=== PATIENT | female | born 1950 | race Caucasian/White ===

== ENCOUNTER 2019-11-05 13:47 | Outpatient (CLI) | payer MEDICARE, SELFPAY ==
--- NOTE | 2019-11-05 14:01 | USCV_ITS ---
Michelle Wray Age: 69 Gender: F : 1950 Exam Date: 11/05/2019 14:18 Ordering Phys: Seven Akbar MD (Andy) ([email or web address]) Technologist: Summer Figueredo [place] [facility] [place]: POST HC Risk Factors: CATH THRU RT RAD ART Previous Vascular Surgery: Right BP: / Left BP: / RIGHT LEFT PSV PSV (cm/s) (cm/s) Waveform Waveform Triphasic 105.9 Subclavian Proximal Triphasic 88.1 Subclavian Distal Triphasic 77.8 Axillary Triphasic 43.7 Brachial Proximal Triphasic 88.2 Brachial Mid Triphasic 63.3 Brachial at AC Biphasic 54.7 Radial Proximal Biphasic 46.5 Radial Mid Biphasic 21.5 Radial at Wrist Triphasic 32.2 Ulnar Proximal Triphasic 29.4 Ulnar Mid Triphasic 104.1 Ulnar at Wrist FINDINGS UNABLE TO DO PRESSURES DO TO PSEUDO A 1.2 x 0.7 cm hypoechoic echoic area on the anterior aspect of the distal radial artery. Blood flow was noted in this area. 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 Patent radial and ulnar arteries Dr Radha Camarena MD [facility] [place] (Electronically Signed) Final Date: 05 November 2019 19:10 S
== END 2019-11-05 13:48 | disposition home or self-care (01) ==
LOC: RAD 13:57
PROVIDERS: Visit Provider Internal Medicine Cardiovascular Disease
DX: I72.1 Aneurysm of artery of upper extremity (principal)
CPT/HCPCS: 93931

== ENCOUNTER 2019-11-19 05:48 | Day surgery (SDC) | payer MEDICARE, SELFPAY ==
[2019-11-16 10:42] VITALS: BMI 34.7
--- NOTE | 2019-11-16 11:10 | ECG_ITS ---
Measurements Intervals [place] Rate: 75 P: 21 WV: 161 QRS: 2 QRSD: 95 T: 103 QT: 382 QTc: 427 SINUS RHYTHM LEFT VENTRICULAR HYPERTROPHY AND ST-T CHANGE [VOLTAGE CRITERIA PLUS ST/T ABNORMALITY] Compared to ECG 10/09/2019 18:24:16 Myocardial infarct finding no longer present ST (T wave) deviation still present Electronically Signed On 11-16-2019 15:37:33 BIBLICAL STUDIES PROFESSOR by Radha Camarena M.D. [email or web address]
--- NOTE | 2019-11-16 11:27 | ANES.PREANES ---
Pre-Anesthetic Assessment Pre-Anesthetic Assessment: Height/Weight: Height 1.57 m Weight 86.183 kg Proposed Procedure: Operation Date: 11/19/19 07:00 Proposed Procedures p Radial Artery Repair(Not Applicable) - Seven Akbar MD Social: Social History: Tobacco (quit 2004) and No alcohol Exam: Pre-Anes Outpt Exam: alert, oriented x 3, clear to auscultation bilaterally and regular rate & rhythm Airway: Submandibular: WNL Cervical ROM: WNL MP: 2 Dentition: Partials (upper) and Other (poor dentation) History/ROS: No significant history except as noted Pulmonary: Pulmonary: AZUL CV/HEM: CV/HEM: HTN : : None reported Hepatic: Hepatic: None reported GI: GI: None reported Metabolic: Metabolic: None reported Musc/skel: Musc/skel: None reported Neuropsych: Neuropsych: None reported Anesthetic Plan: ASA status: II Anesthesia: Anesthesia Evaluation and MAC Risk of > 500 ml blood loss (7ml/kg in children): No PFSH Anesthesia PFSH: Medical History (Updated 11/16/19 @ 11:28 by Blade Eastman MD) Atrial fibrillation (Acute) CHF (congestive heart failure) (Acute) History of fracture (Acute) Hypertension (Acute) Radial artery aneurysm (Acute) Surgical History (Updated 11/16/19 @ 11:28 by Blade Eastman MD) H/O: section (Acute) Family History Father CAD (coronary artery disease) Myocardial infarction Sister Cancer Social History Smoking and tobacco status: former smoker Quit status (tobacco): has quit using tobacco Alcohol intake: never Substance/Drug Use: never Data Anesthesia Cardiac Studies: Holter Monitor 10/31/19
[2019-11-16 11:30] LABS: Basophils % 0.6 %; Eosinophils # 0.1 10^3/uL (0.0-0.8); Eosinophils % 1.3 %; Hematocrit 41.9 % (37.0-47.0); Hemoglobin 13.3 g/dL (11.5-15.3); Lymphocytes # 1.5 10^3/uL (0.8-4.8); Mean Corpuscular HGB Conc 31.7 g/dL (30.0-36.0); Mean Corpuscular Hemoglobin 28.2 pg (28.0-34.0); Mean Corpuscular Volume 88.8 fL (81-99); Mean Platelet Volume 9.9 fL (7.4-10.4); Monocytes # 0.6 10^3/uL (0.2-0.9); Monocytes % 9.6 %; Neutrophils # 4.1 10^3/uL (1.8-7.7); Neutrophils % 64.2 %; Nucleated Red Blood Cells % 0 %; Platelet Count 272 10^3/cmm (130-400); Red Blood Count 4.72 10^6/uL (4.1-5.3); Red Cell Distribution Width 13.8 % (12.1-15.1); White Blood Count 6.4 10^3/uL (4.0-10.0)
[2019-11-16 11:48] LABS: INR 1.38 (0.8-1.2)
[2019-11-16 11:59] LABS: Anion Gap 18.1 (5-19); Blood Urea Nitrogen 16 mg/dL (8-23); Carbon Dioxide 30 mmol/L (22-29); Chloride 89 mmol/L (98-107); Glomerular Filtration Rate 55.1 mL/min (90-130); Glucose 116 mg/dL (74-106); Osmolality Calculated 273 mOsm/kg (285-295); Potassium 4.1 mmol/L (3.5-5.1); Sodium 133 mmol/L (136-145)
[2019-11-19 06:11] VITALS: BP 169/119; PULSE 85; RESP 18; TEMP 37.3
--- NOTE | 2019-11-19 06:24 | PM.HPUD ---
H&P update H&P Update: DATE OF SURGERY/PROCEDURE: 11/19/19 DATE H&P PERFORMED: 11/19/19 H&P UPDATE INFORMATION: H&P completed within last 30 days and No changes to prior documentation CHANGES TO PREVIOUS DOCUMENTATION: Ultrasonography has confirmed pseudoaneurysm with flow in the right radial artery at the wrist. PREOP DIAGNOSIS: Pseudoaneurysm right radial artery status post left heart catheterization PRIMARY INDICATION FOR PROCEDURE: Enlarging pseudoaneurysm right radial artery PLANNED PROCEDURE: Operation Date: 11/19/19 07:00 Proposed Procedures p Radial Artery Repair(Not Applicable) - Seven Akbar MD Conscious Sedation: Patient reassessed prior to sedation, with no change noted: Yes PHYSICAL EXAM: alert, oriented x 3, clear to auscultation bilaterally, regular rate & rhythm and operative site marked AIRWAY EVAL/ANESTHESIA PLAN: normal airway and Risks, benefits & alternatives of sedation and/or procedure discussed ADDITIONAL INFORMATION: Conscious sedation will be provided by our anesthesia colleagues. Full H&P Perinent History: Medical/Surgical History: Medical History (Updated 11/16/19 @ 11:28 by Blade Eastman MD) Atrial fibrillation (Acute) CHF (congestive heart failure) (Acute) History of fracture (Acute) Hypertension (Acute) Radial artery aneurysm (Acute) Family History: Family History Father CAD (coronary artery disease) Myocardial infarction Sister Cancer Social History: Social History Smoking and tobacco status: former smoker Quit status (tobacco): has quit using tobacco Alcohol intake: never Substance/Drug Use: never
[2019-11-19 06:25] VITALS: BP 147/76
[2019-11-19] MEDS: vancomycin 1,000 MG SDV 1000 MG IRRIGATION (07:34)
[2019-11-19] MEDS: sodium chloride 0.9% 1,000 ML 30 ML IV (07:59)
--- NOTE | 2019-11-19 08:07 | PM.HPUD ---
H&P update H&P Update: DATE OF SURGERY/PROCEDURE: 11/19/19 DATE H&P PERFORMED: 11/19/19 PLANNED PROCEDURE: Operation Date: 11/19/19 07:00 Proposed Procedures p Radial Artery Repair(Not Applicable) - Seven Akbar MD Full H&P Medications/Allergies: Current Medications: Current Medications Generic Name Dose Route Start Last Admin Trade Name Freq PRN Reason Stop Dose Admin Sodium Chloride 1,000 mls @ 30 ml s/hr 11/19/19 06:00 11/19/19 07:59 Sodium Chloride 0.9% IV 11/20/19 05:59 30 mls/hr .Q24H SY Administration Perinent History: Medical/Surgical History: Medical History (Updated 11/16/19 @ 11:28 by Blade Eastman MD) Atrial fibrillation (Acute) CHF (congestive heart failure) (Acute) History of fracture (Acute) Hypertension (Acute) Radial artery aneurysm (Acute) Family History: Family History Father CAD (coronary artery disease) Myocardial infarction Sister Cancer Social History: Social History Smoking and tobacco status: former smoker Quit status (tobacco): has quit using tobacco Alcohol intake: never Substance/Drug Use: never
--- NOTE | 2019-11-19 08:14 | P.ANES_ITS ---
Pre-Anesthetic Update Pre-Anesthetic Assessment: Date of Surgery/Procedure: 11/19/19 Preop Priscilla gnosis: Pseudoaneurysm right radial artery status post left heart catheterization Proposed Procedure: Operation Date: 11/19/19 07:00 Proposed Procedures p Radial Artery Repair(Not Applicable) - Seven Akbar MD Any changes to Pre-Anesthetic Assessment?: No Vitals: Temperature 99.1 F 11/19/19 06:11 Temperature Source Temporal Artery S can 11/19/19 06:11 Pulse Rate 85 11/19/19 06:11 Pulse Rhythm 11/19/19 06:11 Pulse Strength 3+ Normal 11/19/19 06:11 Respiratory Rate 18 11/19/19 06:11 Respiratory Effort 11/19/19 06:11 Respiratory Depth Normal 11/19/19 06:11 Respiratory Patter n 11/19/19 06:11 Blood Pressure 147/76 11/19/19 06:25 Blood Pressure Sushila n 99 11/19/19 06:25 Oxygen Delivery Me thod 11/19/19 06:09 Exam: Pre-Anes Outpt Exam: alert, oriented x 3, clear to auscultation bilaterally and regular rate & rhythm Cardiac Studies: Holter Monitor 10/31/19
[2019-11-19] MEDS: lidocaine 1% INJ 20 mL SUBCUT (09:02)
--- NOTE | 2019-11-19 09:15 | P.OP_ITS ---
Operative Report Date of procedure: 11/19/19 Pre-op Diagnosis: Pseudoaneurysm right radial artery status post left heart catheterization Post-op diagnosis: same Procedure Done: Repair of right radial artery pseudoaneurysm Specimens removed/disposition: Pseudoaneurysm specimen wall delivered to pathology Surgeon: Seven Akbar Anesthesia: MAC and Local (8 cc) Estimated blood loss (mL): 10 Complications: None Condition: stable Disposition: same day Brief History: 69-year-old female referred to our clinic earlier this month after undergoing left heart catheterization through a right radial approach back in August by Dr. Camarena. Patient developed a slowly enlarging area at the site of the catheterization of the right wrist. This clinically appears to represent a pseudoaneurysm, and indeed by ultrasonography, there was flow confirmed. I have recommended surgical correction. Rationale was discussed. Details the risk of the procedure were frankly reviewed. Appropriate signs have been reviewed and signed. Procedure: Ms. Wray was taken operating room theater carefully positioned on the OR table. Appropriate monitoring was performed by our anesthesia colleagues. She received IV conscious sedation. Her entire right hand and forearm up to the elbow was sterilely prepped and draped. 1% lidocaine was infiltrated over this pseudoaneurysm at the right wrist. Just prior to this I did confirm Doppler signal above and below the pseudoaneurysm as well as confirming a strong Doppler signal with enhancement of the ulnar artery with pre ssure occlusion of the right radial. After local anesthesia was administered, a longitudinal incision was made over the pseudoaneurysm and continue proximally and distally. Dissection was then carried out in these areas until we could expose the radial artery which was isolated. Separately continued dissection over the pseudoaneurysm and at this point we administered 5000 is of heparin. We provided occlusion to the radial artery proximally distally some continued dissection of the pseudoaneurysm and a circumferential fashion. Following this, the pseudoaneurysm was opened and a large amount of thrombus was expressed. I then resected the pseudoaneurysmal wall and this was sent to pathology. We did continue dissection down exposing the radial artery with a area of extravasation from the prior catheterization was repaired utilizing 7-0 Prolene suture. Nitroglycerin was applied topically to the vessel as occlusion was released reestablishing flow. We confirm distal flow with the use of Doppler. After approximately 5 minutes, we partially reversed heparin with 25 mg of protamine. We then meticulously examined the wound and confirmed hemostasis. Cautery and suture was utilized as required. Once completed, the wound was irrigated antibiotic solution. Sponge and needle count was correct. Surgicel was placed over the radial artery. It was then closed with 3-0 Vicryl suture in a subcutaneous manner and 4-0 Monocryl suture in a subcuticular manner. Sterile dressings were applied. We confirmed distal Doppler signal. Ms. Wray was then awakened from IV conscious sedation with stable vital signs. She was transferred to the outpatient surgery department in stable condition. I did student loan counselor her family at completion of the procedure.
[2019-11-19] MEDS: morphine 4 mg/mL SDV 1 mL IVP (10:11)
[2019-11-19 10:12] VITALS: BP 145/76; PULSE 82; RESP 18; TEMP 36.6; O2SAT 94
[2019-11-19 10:19] VITALS: BP 165/84; PULSE 72; RESP 18; O2SAT 96
== END 2019-11-19 10:47 | disposition home or self-care (01) ==
PROVIDERS: Visit Provider Thoracic Surgery (Cardiothoracic Vascular Surgery)
PROC: (CPT 35045; principal; 2019-11-19 07:00)
DX: I72.1 Aneurysm of artery of upper extremity (principal); I48.91 Unspecified atrial fibrillation; I11.0 Hypertensive heart disease with heart failure; I50.9 Heart failure, unspecified; Z82.49 Family history of ischemic heart disease and other diseases of the circulatory system; Z87.891 Personal history of nicotine dependence; I10 Essential (primary) hypertension
CPT/HCPCS: 37799; 12345; 36415; 80048; 85025; 85610; 88305; 93005; 96365; 96374; J0690; J1644; J2001; J2270; J2704; J2720; J3010; J3370; J3490; J7030

== ENCOUNTER → 2019-12-10 15:45 | Outpatient (BNVA) | payer MEDICARE, SELFPAY | PROVIDERS: Visit Provider Family Medicine | DX: I10 Essential (primary) hypertension (principal) | CPT/HCPCS: 36415; 80048 ==

== ENCOUNTER → 2020-01-04 13:44 | Outpatient (BNVA) | payer MEDICARE, SELFPAY | PROVIDERS: Visit Provider Family Medicine | DX: Z01.419 Encounter for gynecological examination (general) (routine) without abnormal findings (principal); I10 Essential (primary) hypertension; E11.9 Type 2 diabetes mellitus without complications; Z12.11 Encounter for screening for malignant neoplasm of colon | CPT/HCPCS: 80053; 80061; 82044; 85025; 88175 ==

== ENCOUNTER → 2022-01-22 11:10 | Outpatient (BNVA) | payer MEDICARE, SELFPAY | PROVIDERS: PCP Electrodiagnostic Medicine; Visit Provider Nurse Practitioner Family | DX: I35.0 Nonrheumatic aortic (valve) stenosis (principal); I11.0 Hypertensive heart disease with heart failure; I50.42 Chronic combined systolic (congestive) and diastolic (congestive) heart failure; Z87.891 Personal history of nicotine dependence | CPT/HCPCS: 99214 ==

== ENCOUNTER 2022-02-17 09:28 | Outpatient (CLI) | payer MEDICARE, SELFPAY ==
--- NOTE | 2022-02-17 10:15 | USCV_ITS ---
Nils Tiesha Age: 71 Gender: F : 1950 Exam Date: 02/17/2022 11:12 Ordering Phys: Melly Monson Technologist: Jona Pepper [place]am [place] [facility] [place]: Aortic stenosis BP: 188 / 96 HR: 56 Rhythm: Sinus Technical Quality: MEASUREMENTS (Male / Female) Normal Values 2D ECHO LV Diastolic Diameter PLAX 4.6 cm 4.2 - 5.9 / 3.9 - 5.3 cm LV Systolic Diameter PLAX 2.9 cm IVS Diastolic Thickness 0.8 cm 0.6 - 1.0 / 0.6 - 0.9 cm IVS Systolic Thickness 1.1 cm LVPW Diastolic Thickness 1.6 cm 0.6 - 1.0 / 0.6 - 0.9 cm LVPW Systolic Thickness 2.1 cm LVOT Diameter 2.0 cm LV Ejection Fraction 2D Teich 67.9 % LV Ejection Fraction MOD 2C 73.1 % LV Ejection Fraction 2C AL 73.5 % LA Diameter 3.1 cm LA Width 2.9 cm LA Height 5.1 cm RA Width 3.8 cm RA Height 3.9 cm Aorta at Sinotubular Diameter 1.8 cm M-MODE Aortic Annulus Diameter 2.6 cm LA Ao Ratio MM 1.2 MV E Point Septal Separation 0.3 cm DOPPLER AV Peak Velocity 295.0 cm/s LVOT Peak Velocity 93.0 cm/s AV Area Cont Eq vti 1.1 cm squared AV Area Cont Eq pk 1.0 cm squared MV Area PHT 3.9 cm squared Mitral E to A Ratio 1.1 MV E' Velocity 51.0 cm/s Mitral E to MV E' Ratio 9.2 Mitral E to LV E' Lateral Ratio 8.9 Mitral E to LV E' Septal Ratio 9.7 TR Peak Velocity 451.2 cm/s TR Peak Gradient 81.4 mmHg TR Mean Velocity 363.0 cm/s TR Mean Gradient 55.5 mmHg TR Velocity Time Integral 152.8 cm Right Atrial Pressure 3.0 mmHg Pulmonary Artery Systolic Pressu 84.4 mmHg RV Acceleration Time 0.2 s RV Ejection Time 0.4 s RV AcT/ET 0.6 FINDINGS Left Ventricle Normal left ventricular size, systolic function and mildly increased wall thickness, with no regional wall motion abnormalities. Left ventricular ejection fraction is estimated at 65 %. Normal diastolic function. Right Ventricle Normal right ventricular size and systolic function. RVSP could not be calculated due to incomplete tricuspid regurgitation velocity profile. Right Atrium Normal right atrial size. Right atrial pressure estimated at 8 mmHg. Left Atrium Mildly increased left atrial size. Mitral Valve Structurally normal mitral valve. No mitral valve stenosis. Trace mitral valve regurgitation. Aortic Valve Aortic valve not well visualized. Possibly mild aortic valve stenosis, peak velocity 3 m/s, peak gradient 30 mm Hg, mean gradient 19.1 mmHg, ANNMARIE 1.1 cm squared. However the contour of aortic valve jet appears to be triangular. No aortic valve regurgitation. Tricuspid Valve Structurally normal tricuspid valve. No tricuspid valve stenosis. Mild tricuspid valve regurgitation. Pulmonic Valve Pulmonic valve not well visualized. Pericardium No pericardial effusion. Aorta Dilated inferior vena cava with greater than 50% respiratory variation. CONCLUSIONS 1. Normal left ventricular size, systolic function and mildly increased wall thickness, with no regional wall motion abnormalities. Left ventricular ejection fraction is estimated at 65 %. Normal diastolic function. 2. Possibly mild aortic valve stenosis, peak velocity 3 m/s, peak gradient 30 mm Hg, mean gradient 19.1 mmHg, ANNMARIE 1.1 cm squared. 3. When compared to previous echocardiogram dated 09/14/2019, left ventricular systolic function seems to have improved. Tessy Hobson MD (Electronically Signed) Final Date: 22 Feb 2022 12:49 S
== END 2022-02-17 09:29 | disposition home or self-care (01) ==
PROVIDERS: PCP Electrodiagnostic Medicine; Visit Provider Nurse Practitioner Family
DX: I35.0 Nonrheumatic aortic (valve) stenosis (principal)
CPT/HCPCS: 93306

== ENCOUNTER 2022-04-12 10:26 | Outpatient (CLI) | payer MEDICARE, SELFPAY ==
--- NOTE | 2022-04-12 10:35 | MM_ITS ---
WS: [id number] BILATERAL SCREENING DIGITAL BREAST TOMOSYNTHESIS MAMMOGRAM WITH CAD HISTORY: SCREEN COMPARISON: None available. Bilateral CC and MLO views with tomosynthesis and synthetic mammography submitted. Computer aided det ection analyzed. Breast composition: The breasts are heterogeneously dense, which may obscure small masses. No suspici ous masses, microcalcifications or architectural distortion. MM/[place] [id number] IMPRESSION: BI-RADS: 1-Negative FOLLOW UP: 1 Year Follow-up
== END 2022-04-12 10:27 | disposition home or self-care (01) ==
LOC: RAD 10:27
PROVIDERS: PCP Electrodiagnostic Medicine; Visit Provider Electrodiagnostic Medicine
DX: Z12.31 Encounter for screening mammogram for malignant neoplasm of breast (principal)
CPT/HCPCS: 77063; 77067

== ENCOUNTER → 2022-12-21 11:01 | Outpatient (BNVA) | payer MEDICARE, SELFPAY | PROVIDERS: PCP Family Medicine; Visit Provider Family Medicine | DX: I10 Essential (primary) hypertension (principal); I35.0 Nonrheumatic aortic (valve) stenosis; I48.0 Paroxysmal atrial fibrillation; Z01.419 Encounter for gynecological examination (general) (routine) without abnormal findings; I50.42 Chronic combined systolic (congestive) and diastolic (congestive) heart failure | CPT/HCPCS: 80053; 80061 ==

== ENCOUNTER → 2023-03-14 14:28 | Outpatient (BNVA) | payer MEDICARE, SELFPAY | PROVIDERS: PCP Family Medicine; Visit Provider Internal Medicine Cardiovascular Disease | DX: I11.0 Hypertensive heart disease with heart failure (principal); I50.42 Chronic combined systolic (congestive) and diastolic (congestive) heart failure; I35.0 Nonrheumatic aortic (valve) stenosis; I48.0 Paroxysmal atrial fibrillation; Z86.79 Personal history of other diseases of the circulatory system; F17.200 Nicotine dependence, unspecified, uncomplicated; Z79.82 Long term (current) use of aspirin | CPT/HCPCS: 99214 ==

== ENCOUNTER 2023-06-26 15:56 | Emergency (ER) | payer MEDICARE, SELFPAY ==
[2023-06-26 16:00] VITALS: BP 206/121; PULSE 115; RESP 18; O2SAT 95
--- NOTE | 2023-06-26 16:10 | CTR_ITS ---
PROCEDURE INFORMATION: Exam: CT Head Without Contrast Exam date and time: 06/26/2023 4:23 PM Age: 72 years old Clinical indication: Stroke-like symptoms; Visual disturbance; Additional info: Vision loss right eye TECHNIQUE: Imaging protocol: Computed tomography of the head without contrast. Sagittal and coronal reformatted images were created and reviewed. Radiation optimization: All CT scans at this facility use at least one of these dose optimization techniques: automated exposure control; mA and/or kV adjustment per patient size (includes targeted exams where dose is matched to clinical indication); or iterative reconstruction. Other technique: STROKE PROTOCOL was implemented. REPORTING DATA: Count of CT and Cardiac NM exams in prior 12 months: This patient has received 0 known CTs and 0 known cardiac nuclear medicine studies in the 12 months prior to the current study. COMPARISON: CT head wo con* [id number] 09/14/2019 1:48 AM RADIATION DOSE METRICS: Total DLP (mGy-cm): 956.63 FINDINGS: Brain: No acute intracranial hemorrhage. No acute infarct. No intra-axial or extra-axial masses. Cheek-white matter differentiation is preserved. No cerebral edema. No extra-axial fluid collections. No midline shift. No evidence for Chiari 1 malformation. Stable mild atrophy of the brain parenchyma. Focal area of decreased attenuation consistent with an old lacunar infarct in the left basal ganglia. Cerebral ventricles: No hydrocephalus. Paranasal sinuses: Visualized paranasal sinuses are clear. Mastoid air cells: Mastoid air cells are clear bilaterally. Orbital cavities: No acute abnormality in the visualized orbits. Bones/joints: No acute fracture. Soft tissues: The extracranial soft tissues are unremarkable. Vasculature: Atherosclerotic changes in the visualized arteries. CT/CT head thrombolytic [id number] IMPRESSION: 1. No acute abnormality of the brain. 2. Stable mild atrophy of the brain parenchyma. 3. Old lacunar infarct in the left basal ganglia. 4. Incidental/nonacute findings are listed in the report. ASSESSMENT: ASPECTS ([place] Stroke Program Early CT Score) Score is 10.
--- NOTE | 2023-06-26 16:11 | CTR_ITS ---
PROCEDURE INFORMATION: Exam: CTA Head With Contrast, Arteriography Exam date and time: 06/26/2023 4:27 PM Age: 72 years old Clinical indication: Visual disturbance; Sudden visual loss; Additional info: Acute vision loss right eye TECHNIQUE: Imaging protocol: Computed tomographic angiography of the head with contrast. Exam focused on the arteries. 3D rendering (Not supervised by radiologist): MIP and/or 3D reconstructed images were created by the technologist. Radiation optimization: All CT scans at this facility use at least one of these dose optimization techniques: automated exposure control; mA and/or kV adjustment per patient size (includes targeted exams where dose is matched to clinical indication); or iterative reconstruction. Contrast material: OMNI 350; Contrast volume: 100 ml; Contrast route: INTRAVENOUS (IV); REPORTING DATA: Count of CT and Cardiac NM exams in prior 12 months: This patient has received 0 known CTs and 0 known cardiac nuclear medicine studies in the 12 months prior to the current study. COMPARISON: CT head thrombolytic [id number] 06/26/2023 4:23 PM RADIATION DOSE METRICS: Total DLP (mGy-cm): 462.45 FINDINGS: ANTERIOR CIRCULATION: Right internal carotid artery: Mild calcified plaque at the cavernous and supraclinoid segments. No occlusion, thrombosis, stenosis, extravasation, dissection, or aneurysm. Right middle cerebral artery: Unremarkable. No occlusion, thrombosis, stenosis, extravasation, dissection, or aneurysm. Right anterior cerebral artery: Unremarkable. No occlusion, thrombosis, stenosis, extravasation, dissection, or aneurysm. Anterior communicating artery: The anterior communicating artery is unremarkable. Left internal carotid artery: Mild calcified plaque at the cavernous segment. No occlusion, thrombosis, stenosis, extravasation, dissection, or aneurysm. Left middle cerebral artery: Unremarkable. No occlusion, thrombosis, stenosis, extravasation, dissection, or aneurysm. Left anterior cerebral artery: Unremarkable. No occlusion, thrombosis, stenosis, extravasation, dissection, or aneurysm. POSTERIOR CIRCULATION: Right vertebral artery: Minimal focal calcified plaque. No occlusion, thrombosis, stenosis, extravasation, dissection, or aneurysm. Left vertebral artery: Moderate calcified plaque with up to 35% stenosis. No occlusion, thrombosis, extravasation, dissection, or aneurysm. Basilar artery: Unremarkable. No occlusion, thrombosis, stenosis, extravasation, dissection, or aneurysm. Right posterior cerebral artery: Unremarkable. No occlusion, thrombosis, stenosis, dissection, or aneurysm. Left posterior cerebral artery: Unremarkable. No occlusion, thrombosis, stenosis, extravasation, dissection, or aneurysm. Right posterior communicating artery: The right posterior communicating artery is not visualized. The right posterior communicating artery may be congenitally absent, or may be too small for the resolution capabilities of this study. Left posterior communicating artery: The left posterior communicating artery is not visualized. The left posterior communicating artery may be congenitally absent, or may be too small for the resolution capabilities of this study. Veins: The dural sinuses and deep cerebral veins are patent. Brain: No definite mass, mass effect, or midline shift. Cerebral ventricles: No hydrocephalus. Orbital cavities: Globes and lenses, extraocular muscles, and optic nerves are intact bilaterally. No acute intraorbital abnormality. Mastoid air cells: Mastoid air cells are clear bilaterally. Paranasal sinuses: Paranasal sinuses are clear. Nasal cavity: Alana bullosa of the right and left middle turbinates. Bones/joints: Unremarkable. No acute fracture. Soft tissues: Unremarkable. PROCEDURE INFORMATION: Exam: CTA Neck With Contrast Exam date and time: 06/26/2023 4:27 PM Age: 72 years old Clinical indication: Visual disturbance; Sudden visual loss; Additional info: Acute vision loss right eye TECHNIQUE: Imaging protocol: Computed tomographic angiography of the neck with contrast. 3D rendering (Not supervised by radiologist): MIP and/or 3D reconstructed images were created by the technologist. Radiation optimization: All CT scans at this facility use at least one of these dose optimization techniques: automated exposure control; mA and/or kV adjustment per patient size (includes targeted exams where dose is matched to clinical indication); or iterative reconstruction. Contrast material: OMNI 350; Contrast volume: 100 ml; Contrast route: INTRAVENOUS (IV); REPORTING DATA: Count of CT and Cardiac NM exams in prior 12 months: This patient has received 0 known CTs and 0 known cardiac nuclear medicine studies in the 12 months prior to the current study. COMPARISON: CT head thrombolytic [id number] 06/26/2023 4:23 PM RADIATION DOSE METRICS: Total DLP (mGy-cm): 462.45 FINDINGS: Right common carotid artery: Mild calcified plaque. No occlusion, thrombosis, stenosis, extravasation, dissection, or aneurysm. Right internal carotid artery: Mild to moderate calcified plaque at the origin. No occlusion, thrombosis, stenosis, extravasation, dissection, or aneurysm. Right external carotid artery: Unremarkable. No occlusion, thrombosis, stenosis, extravasation, dissection, or aneurysm. Left common carotid artery: Mild calcified plaque distally. No occlusion, thrombosis, stenosis, extravasation, dissection, or aneurysm. Left internal carotid artery: Mild to moderate calcified plaque at the origin. No occlusion, thrombosis, stenosis, extravasation, dissection, or aneurysm. Left external carotid artery: Unremarkable. No occlusion, thrombosis, stenosis, extravasation, dissection, or aneurysm. Right vertebral artery: Mild calcified plaque at the origin. No occlusion, thrombosis, stenosis, extravasation, dissection, or aneurysm. Left vertebral artery: Mild calcified plaque at the C1 level. No occlusion, thrombosis, stenosis, extravasation, dissection, or aneurysm. Brachiocephalic artery: Moderate calcified plaque at the origin with 50% stenosis. No occlusion, thrombosis, extravasation, dissection, or aneurysm. Subclavian arteries: Mild calcified plaque bilaterally. No occlusion, thrombosis, stenosis, extravasation, dissection, or aneurysm. Aorta: Moderate calcified and noncalcified plaque in the visualized aorta. Lymph nodes: No lymphadenopathy. Soft tissues: No soft tissue swelling. No radiopaque foreign body. Bones/joints: Multilevel degenerative changes of varying severity in the visualized spine. Lungs: Visualized lungs are clear. CT/CT angio headneck* [id number] IMPRESSION: 1. The posterior communicating arteries are not visualized. The posterior communicating arteries may be congenitally absent, or may be too small for the resolution capabilities of this study. 2. [id number] atherosclerotic disease, most pronounced at the intracranial left vertebral artery with up to 35% focal stenosis. No occlusion, thrombosis, extravasation, dissection, or aneurysm. 3. Incidental/nonacute findings are listed in the report. IMPRESSION: 1. [id number] atherosclerotic disease. No occlusion, thrombosis, stenosis, extravasation, dissection, or aneurysm. 2. Incidental/nonacute findings are listed in the report. REFERENCES: NASCET CRITERIA. The degree of stenosis in the cervical segment of the internal carotid artery is based on NASCET criteria. Normal is no stenosis. Mild is less than 50% stenosis. Moderate is 50-69% stenosis. Severe is 70% to 99% stenosis. Total occlusion is no detectable patent lumen.
[2023-06-26 16:12] VITALS: BP 206/121; PULSE 86; RESP 18; O2SAT 95
--- NOTE | 2023-06-26 16:14 | ECG_ITS ---
[facility] Test Date: 2023-06-26 Pat Name: Tiesha Wray Department: Room: Gender: Female Recruitment Specialist: : 1950 Requested By: Elena Herrera Order Number: [id number] Reading MD: Estuardo Collins Measurements Intervals [place] Rate: 84 P: 40 [place]: 172 QRS: -5 QRSD: 149 T: 135 QT: 394 QTc: 466 Interpretive Statements SINUS RHYTHM WITH OCCASIONAL VENTRICULAR PREMATURE COMPLEXES LEFT BUNDLE BRANCH BLOCK [120+ ms QRS DURATION, 80+ ms Q/S IN V1/V2, 85+ ms R IN I/aVL/V5/V6] Compared to ECG 11/16/2019 11:19:46 Ventricular premature complex(es) now present Left bundle-branch block now present Left ventricular hypertrophy no longer present ST (T wave) deviation no longer present Electronically Signed On 06-26-2023 16:59:59 CDT by Estuardo Collins [id number]
[2023-06-26 16:27] LABS: Basophils # 0.1 10^3/uL (0.0-0.1); Eosinophils # 0.2 10^3/uL (0.0-0.8); Eosinophils % 3.4 %; Hematocrit 40.2 % (36-47); Lymphocytes # 1.4 10^3/uL (0.8-4.8); Lymphocytes % 19.7 %; Mean Corpuscular HGB Conc 31.6 g/dL (30-55); Mean Corpuscular Hemoglobin 29.3 pg (27-33); Mean Corpuscular Volume 92.8 fl (85-98); Mean Platelet Volume 9.9 fL (7.4-10.4); Monocytes # 0.6 10^3/uL (0.2-0.9); Neutrophils # 4.84 10^3/uL (1.8-7.7); Neutrophils % 67.5 %; Nucleated Red Blood Cells % 0 %; Platelet Count 221 10^3/cmm (157-399); Red Blood Count 4.33 10^6/uL (3.85-5.65); Red Cell Distribution Width 13.5 % (12.1-15.1); White Blood Count 7.16 10^3/uL (3.29-11.43)
[2023-06-26 16:36] LABS: INR 1.05 (0.8-1.2)
[2023-06-26 16:38] VITALS: BP 199/109; PULSE 101; RESP 18; O2SAT 92
[2023-06-26 16:41] LABS: Erythrocyte Sedimentation Rate 37 mm/hr (0-15)
[2023-06-26 16:51] LABS: Alanine Aminotransferase 17 U/L (0-33); Albumin Level 4.3 g/dL (3.5-5.2); Alkaline Phosphatase 59 U/L (35-105); Anion Gap 15.6 (5-19); Aspartate Amino Transferase 26 U/L (0-32); Blood Urea Nitrogen 20 mg/dL (8-23); C Reactive Protein 3.8 mg/L (0.0-4.9); Calcium 9.4 mg/dL (8.5-10.5); Carbon Dioxide 26 mmol/L (22-29); Chloride 102 mmol/L (98-107); Globulin 3.4 g/dL (1.3-4.6); Glucose 113 mg/dL (65-115); Osmolality Calculated 291 mOsm/kg (285-295); Potassium 4.6 mmol/L (3.5-5.1); Sodium 139 mmol/L (136-145); Total Bilirubin 0.8 mg/dL (0.15-1.2); Total Protein 7.7 g/dL (6.6-8.7)
--- NOTE | 2023-06-26 16:57 | W.ED.NEUROSD ---
HPI - Neuro Symptoms/Deficit General: Chief Complaint: Neuro Symptoms/Deficit Stated Complaint: stroke like Time Seen by Provider: 06/26/23 16:00 History of Present Illness: This patient is a 72 year old presenting on a referral from urgent care. She went there today due to loss of vision in her right eye. She reported to me that this started at noon with a fairly rapid dimming of her vision until she really can't see anything out of the right eye. No pain in the eye - minimal headache. No other neuro symptoms. She was sent over for a stroke work up. She is also hypertensive - she says that her BP is 110/50 when she is at home on half a lisinopril - and that it only does up when she has to go to the doctor. No chest pain. Her EHR reflects a history of afib but she is not in a fib today and is not on any blood thinners. She is on a baby aspirin. [facility] PFSH: Medical History (Updated 06/26/23 @ 17:57 by Elena Portillo MD) Atrial fibrillation CHF (congestive heart failure) History of fracture Hypertension Pseudoaneurysm of artery of upper extremity Surgical History H/O: section Family History Father CAD (coronary artery disease) Myocardial infarction Sister Cancer Social History Smoking and tobacco status: current every day smoker Quit status (tobacco): has quit using tobacco Alcohol intake: never Substance/Drug Use: never Physical Exam Const: COMMON NORMALS: no acute distress, patient oriented x3, no limitations and alert GENERAL APPEARANCE: cooperative and comfortable HENMT: HEAD & SCALP: normal to inspection FACE & SINUS: normal facial exam Eye: GENERAL EYE: appearance normal, both eyes and all related structures VISUAL DENNIS: Yes other (complete loss of vision in the right eye) DIRECT OPHTHALMOSCOPY: Yes other (pale retina on the right - difficult to asses the retina on the left) Neck/C-Spine: COMMON NORMALS: supple, no meningeal signs and no JVD Chest: COMMONS NORMALS: normal inspection of the chest Resp: COMMON NORMALS: normal respiratory effort, No use of accessory muscles and clear to auscultation bilaterally AUSCULTATION: clear to auscultation bilaterally Cardio: COMMON NORMALS: no JVD, regular rate, regular rhythm and No murmurs present (Cardio) RATE: regular rate RHYTHM: regular rhythm GI: COMMON NORMALS: Normal to inspection, nondistended, normoactive bowel sounds present, Soft to palpation and non-tender INSPECTION: Yes normal to inspection AUSCULTATION: Yes normoactive bowel sounds PALPATION: Yes Soft to palpation Back/Pelvis: COMMON NORMALS: thoracic and lumbar spine normal to inspection Extremity: COMMON NORMALS: normal to inspection Neuro: COMMON NORMALS: patient oriented x3, moves all extremities, no focal motor deficits and no sensory deficits noted SENSORIUM/ORIENTATION: Yes alert MENINGEAL SIGNS: Yes no meningeal signs Psych: COMMON NORMALS: mental status grossly normal, cooperative and normal affect Skin: COMMON NORMALS: no rashes or lesions noted and turgor normal GENERAL SKIN EXAM: no rashes or lesions noted and turgor normal Course Vital Signs: Vital signs: Vital Signs Pulse Rate 96 06/26/23 17:31 Respiratory Rate 18 06/26/23 17:31 Blood Pressure 207/123 06/26/23 17:31 Pulse Oximetry 99 06/26/23 17:31 Oxygen Delivery Me thod Room Air 06/26/23 17:31 MDM - Neuro Symptoms/Deficit Medical Decision Making Acute vision loss in the right eye 4 hours prior to presentation to the ED. Concerning for retinal artery occlusion. Also possible retinal detachment, vs optical migraine, temporal arteritis. CT pending as well as CTA. CT neg. CAt with minor plaque in the right carotid and right vertebral. Discussed with Dr. Guidry - he will see her in the office on Tuesday. There is not much to be done for her - only treatment within the first hour would potentially help. I discussed this with the patient - she is aware that it is unlikely that she will get her vision back in the right eye. Lab Data 06/26/23 16:06 06/26/23 16:[address] 06/26/23 16:10 IMPRESSION: 1. No acute abnormality of the brain. 2. Stable mild atrophy of the brain parenchyma. 3. Old lacunar infarct in the left basal ganglia. 4. Incidental/nonacute findings are listed in the report. ASSESSMENT: ASPECTS ([place] Stroke Program Early CT Score) Score is 10. Head/Neck CTA 06/26/23 16:11 IMPRESSION: 1. The posterior communicating arteries are not visualized. The posterior communicating arteries may be congenitally absent, or may be too small for the resolution capabilities of this study. 2. Oiey-ib-zznaywrk atherosclerotic disease, most pronounced at the intracranial left vertebral artery with up to 35% focal stenosis. No occlusion, thrombosis, extravasation, dissection, or aneurysm. 3. Incidental/nonacute findings are listed in the report. IMPRESSION: 1. Elih-se-bjeuzoii atherosclerotic disease. No occlusion, thrombosis, stenosis, extravasation, dissection, or aneurysm. 2. Incidental/nonacute findings are listed in the report. REFERENCES: NASCET CRITERIA. The degree of stenosis in the cervical segment of the internal carotid artery is based on NASCET criteria. Normal is no stenosis. Mild is less than 50% stenosis. Moderate is 50-69% stenosis. Severe is 70% to 99% stenosis. Total occlusion is no detectable patent lumen. Laboratory Results WBC 7.16 10^3/uL (3.29-11.43) 06/26/23 16:06 RBC 4.33 10^6/uL (3.85-5.65) 06/26/23 16:06 Hgb 12.70 g/dL (11.27-16.99) 06/26/23 16:06 Hct 40.2 % (36-47) 06/26/23 16:06 MCV 92.8 fl (85-98) 06/26/23 16:06 MCH 29.3 pg (27-33) 06/26/23 16:06 MCHC 31.6 g/dL (30-55) 06/26/23 16:06 RDW 13.5 % (12.1-15.1) 06/26/23 16:06 Plt Count 221 10^3/cmm (157-399) 06/26/23 16:06 MPV 9.9 fL (7.4-10.4) 06/26/23 16:06 Neut % (Auto) 67.5 % 06/26/23 16:06 Lymph % (Auto) 19.7 % 06/26/23 16:06 [place] % (Auto) 8.0 % 06/26/23 16:06 Eos % (Auto) 3.4 % 06/26/23 16:06 Baso % (Auto) 1.0 % 06/26/23 16:06 Neut # (Auto) 4.84 10^3/uL (1.8-7.7) 06/26/23 16:06 Lymph # (Auto) 1.4 10^3/uL (0.8-4.8) 06/26/23 16:06 [place] # (Auto) 0.6 10^3/uL (0.2-0.9) 06/26/23 16:06 Eos # (Auto) 0.2 10^3/uL (0.0-0.8) 06/26/23 16:06 Baso # (Auto) 0.1 10^3/uL (0.0-0.1) 06/26/23 16:06 Nucleated RBC % (auto) 0 % 06/26/23 16:06 Nucleated RBCs # 0.0 /100WBC 06/26/23 16:06 ESR 37 mm/hr (0-15) H 06/26/23 16:06 PT 14.00 SECONDS (12.1-14.9) 06/26/23 16:06 INR 1.05 (0.8-1.2) 06/26/23 16:06 Sodium 139 mmol/L (136-145) 06/26/23 16:06 Potassium 4.6 mmol/L (3.5-5.1) 06/26/23 16:06 Chloride 102 mmol/L (98-107) 06/26/23 16:06 Carbon Dioxide 26 mmol/L (22-29) 06/26/23 16:06 Anion Gap 15.6 (5-19) 06/26/23 16:06 BUN 20 mg/dL (8-23) 06/26/23 16:06 Creatinine 1.0 mg/dL (0.5-0.9) H 06/26/23 16:06 GFR Calculation Not Reportable 06/26/23 16:06 Glucose 113 mg/dL (65-115) 06/26/23 16:06 Calculated Osmolality 291 mOsm/kg (285-295) 06/26/23 16:06 Calcium 9.4 mg/dL (8.5-10.5) 06/26/23 16:06 Total Bilirubin 0.8 mg/dL (0.15-1.2) 06/26/23 16:06 AST 26 U/L (0-32) 06/26/23 16:06 ALT 17 U/L (0-33) 06/26/23 16:06 Alkaline Phosphatase 59 U/L (35-105) 06/26/23 16:06 C-Reactive Protein 3.8 mg/L (0.0-4.9) 06/26/23 16:06 Total Protein 7.7 g/dL (6.6-8.7) 06/26/23 16:06 Albumin 4.3 g/dL (3.5-5.2) 06/26/23 16:06 Globulin 3.4 g/dL (1.3-4.6) 06/26/23 16:06 Discharge Plan Discharge Patient Disposition: Home Clinical Impression: Acute loss of vision, HTN (hypertension), Arteriosclerosis of right carotid artery, Vertebral artery narrowing, Central artery occlusion of retina Condition: Stable Prescriptions: No Action ascorbate calcium (vitamin C) 500 mg tablet 500 mg PO BID Garlic PO BID magnesium oxide 400 mg magnesium tablet 400 mg PO TID vitamin D3-vitamin K2 125-90 mcg capsule PO lisinopril 10 mg tablet 10 - 20 mg PO DAILY Qty: 180 3RF Adult Low Dose Aspirin 81 mg tablet,delayed release (DR/EC) 81 mg PO DAILY Qty: 90 4RF Discharge Orders: Discharge ED (Routine); Ordered 06/26/23 Ordered By: Elena Portillo Referrals: Gary Guidry MD [Physician] - 06/28/23 Armando Chung DO [Primary Care Provider] - Patient Instructions: Opioid Safety, Pain Management Activity Restrictions/Additional Instructions: Take a double dose of your aspirin until you see Dr. Guidry. Call Tuesday for a same day appointment. Return to the ED if any vision loss in the left eye or any other signs of stroke, such as facial weakness, weakness or numbness of one side of your body, trouble with speech or balance. Coding Level of Care Code ED Social Services Analyst for Eliazar Loomis
[2023-06-26 17:11] VITALS: BP 184/115; PULSE 94; RESP 18; O2SAT 97
[2023-06-26 17:31] VITALS: BP 207/123; PULSE 96; RESP 18; O2SAT 99
[2023-06-26 18:01] VITALS: BP 201/118; PULSE 77; RESP 18; O2SAT 99
== END 2023-06-26 18:08 | disposition home or self-care (01) ==
PROVIDERS: Emergency Provider Emergency Medicine; PCP Family Medicine
DX: H54.7 Unspecified visual loss (principal); I65.21 Occlusion and stenosis of right carotid artery; H34.11 Central retinal artery occlusion, right eye; I65.02 Occlusion and stenosis of left vertebral artery; Z79.82 Long term (current) use of aspirin; F17.210 Nicotine dependence, cigarettes, uncomplicated; I11.0 Hypertensive heart disease with heart failure; I50.9 Heart failure, unspecified
CPT/HCPCS: 70450; 70496; 70498; 80053; 85025; 85610; 85651; 86140; 93005; 99285

== ENCOUNTER → 2023-09-12 11:45 | Outpatient (BNVA) | payer MEDICARE, SELFPAY | PROVIDERS: PCP Family Medicine; Visit Provider Family Medicine | DX: Z13.6 Encounter for screening for cardiovascular disorders (principal); I35.0 Nonrheumatic aortic (valve) stenosis; I10 Essential (primary) hypertension; I50.9 Heart failure, unspecified; I48.91 Unspecified atrial fibrillation | CPT/HCPCS: 80053; 80061; 85025 ==

== ENCOUNTER → 2024-03-29 11:25 | Outpatient (BNVA) | payer MEDICARE, SELFPAY | PROVIDERS: PCP Family Medicine; Visit Provider Family Medicine | DX: Z13.6 Encounter for screening for cardiovascular disorders (principal); I10 Essential (primary) hypertension; I50.42 Chronic combined systolic (congestive) and diastolic (congestive) heart failure; I48.0 Paroxysmal atrial fibrillation | CPT/HCPCS: 80053; 80061 ==

== ENCOUNTER 2024-07-09 06:01 | Observation (INO) | payer MEDICARE, MEDICAID, SELFPAY ==
[2024-07-09] VITALS (69 sets, daily range): BP systolic 94–212; BP diastolic 57–140; PULSE 67–139; RESP 10–36; TEMP 36.4–36.9; O2SAT 79–100; BMI 31.1
--- NOTE | 2024-07-09 06:05 | ECG_ITS ---
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 Measurements Intervals [place] Rate: 134 P: -31 [place]: 128 QRS: -2 QRSD: 154 T: 154 QT: 299 QTc: 447 Interpretive Statements SUPRAVENTRICULAR TACHYCARDIA LEFT BUNDLE BRANCH BLOCK [120+ ms QRS DURATION, 80+ ms Q/S IN V1/V2, 85+ ms R IN I/aVL/V5/V6] Compared to ECG 06/26/2023 16:14:43 Sinus rhythm no longer present Ventricular premature complex(es) no longer present Electronically Signed On 07-09-2024 16:10:58 CDT by Keith Peterson M.D. [id number]
--- NOTE | 2024-07-09 06:11 | XRR_ITS ---
PROCEDURE INFORMATION: Exam: XR Chest Exam date and time: 07/09/2024 6:12 AM Age: 73 years old Clinical indication: Shortness of breath; Patient HX: Severe SOB with hypoxia. History of chf. TECHNIQUE: Imaging protocol: Radiologic exam of the chest. Views: 1 view. COMPARISON: CR XR chest 1V [id number] 10/09/2019 6:21 PM FINDINGS: Lungs: Prominent increased widespread interstitial lung markings throughout both lungs. Pleural spaces: Unremarkable. No pleural effusion. No pneumothorax. Heart/Mediastinum: Cardiac enlargement. Bones/joints: Unremarkable. XR/XR chest 1V portable [id number] IMPRESSION: 1. Diffuse interstitial edema. 2. Consider CHF.
--- NOTE | 2024-07-09 06:13 | W.ED.SOB ---
HPI - SOB/Dyspnea General: Chief Complaint: Shortness of Breath/Dyspnea Stated Complaint: congested/sob Time Seen by Provider: 07/09/24 06:08 History of Present Illness: HPI Narrative: 73-year-old female with a history of hypertension, A-fib and congestive heart failure presents the emergency room with shortness of breath. She says she was somewhat short of breath yesterday but woke up this morning severely short of breath. Said she has to sit up straight to keep breathing. No new lower extremity swelling. No chest pain. No altered mental status. No focal motor deficits. She is profoundly hypoxic and extremely short of breath on presentation. Very orthopneic. She is diaphoretic. She is tachycardic. She is hypertensive. No known fevers. No new cough. No abdominal pain. No nausea or vomiting. Related Data Home Medications Medication Instructions Recorded Confirmed ascorbate calcium (vitamin C) 500 500 mg PO BID 03/14/23 07/09/24 mg tablet magnesium oxide 400 mg PO TID 03/14/23 07/09/24 vitamin D3 125 mcg (5,000 2 cap PO DAILY 03/14/23 07/09/24 unit)-vitamin K2 90 mcg capsule aspirin 81 mg tablet,delayed 81 mg PO .3XW 07/09/24 07/09/24 release (Adult Low Dose Aspirin) flaxseed oil 1,000 mg capsule 1,000 mg PO DAILY 07/09/24 07/09/24 garlic 100 mg tablet 100 mg PO BID 07/09/24 07/09/24 lisinopril 10 mg tablet 1 mg PO 1XD PRN if blood pressure 07/09/24 07/09/24 is high Allergies Allergy/AdvReac Type Severity Reaction Status Date / Time codeine Allergy blood Verified 07/09/24 06:15 disorder diltiazem Allergy dizzy weak Verified 07/09/24 06:15 metoprolol Allergy dry mouth Verified 07/09/24 06:15 cracked lips lisinopril Allergy Severe Mouth Uncoded 07/09/24 06:15 hydrochlorothiazide blisters Review of Systems Narrative: Constitutional symptoms: Negative except as documented in HPI. Skin symptoms: Negative except as documented in HPI. Eye symptoms: Negative except as documented in HPI. ENMT symptoms: Negative except as documented in HPI. Respiratory symptoms: Negative except as documented in HPI. Cardiovascular symptoms: Negative except as documented in HPI. Gastrointestinal symptoms: Negative except as documented in HPI. Genitourinary symptoms: Negative except as documented in HPI. Musculoskeletal symptoms: Negative except as documented in HPI. Neurologic symptoms: Negative except as documented in HPI. Psychiatric symptoms: Negative except as documented in HPI. Endocrine symptoms: Negative except as documented in HPI. [facility] ED PFSH: Medical History (Updated 07/09/24 @ 08:51 by Laurita Oquendo MD) Pseudoaneurysm of artery of upper extremity History of fracture Hypertension Atrial fibrillation CHF (congestive heart failure) Surgical History H/O: section Family History Father CAD (coronary artery disease) Myocardial infarction Sister Cancer Social History Smoking and tobacco/nicotine status: current every day tobacco/nicotine user Quit status (tobacco/nicotine): has quit using Alcohol intake: never Substance/Drug Use: never Physical Exam Narrative: EXAM NARRATIVE: General: Alert, moderate distress Skin: Warm, diaphoretic Head: Normocephalic, atraumatic. Neck: Supple, trachea midline. Eye: Extraocular movements are intact. Ears, nose, mouth and throat: mucosa moist. Cardiovascular: Regular, tachycardic, Normal peripheral perfusion. Respiratory: Patient is very tachypneic, extremely short of breath, orthopneic. Lungs are coarse. Moderate to severe increased work of breathing. Placed on BiPAP immediately. Gastrointestinal: Soft, Nontender, Non distended Musculoskeletal: Normal ROM, no deformity. Neurological: Alert and oriented, No focal neurological deficit observed. Psychiatric: Cooperative, appropriate mood & affect. Course Vital Signs: Vital signs: Vital Signs Temperature 97.6 F 07/09/24 06:03 Pulse Rate 128 H 07/09/24 06:34 Respiratory Rate 24 H 07/09/24 06:34 Blood Pressure 212/140 07/09/24 06:34 Pulse Oximetry 97 07/09/24 08:35 Oxygen Delivery Me thod BiPAP 07/09/24 06:34 Fraction of Inspir ed Oxygen 40 07/09/24 08:35 MDM - SOB/Dyspnea Medical Decision Making Differential diagnosis for patient with shortness of breath includes but is not limited to and based on the above HPI, review of systems and physical exam: Pneumonia. Bronchitis. Asthma or COPD with acute exacerbation. Acute coronary syndrome / OR. Pulmonary embolism. Anxiety. Congestive heart failure. Viral infections including influenza and Covid-19. Atrial fibrillation. Anxiety. Pleural effusion. Pneumothorax. Workup: Lab work, chest X-ray and EKG ordered to evaluate, rule in and rule out above pathologies EKG: Time 6:05 AM rate 134. Sinus tachycardia, No ST-T changes, no ectopy, left bundle branch block, This was reviewed and interpreted by myself the ER physician at 6:06 AM Repeat EKG: Time 820. Rate 78. Normal sinus rhythm, No ST-T changes, no ectopy, left bundle branch block, This was reviewed and interpreted by myself the ER physician at 8:22 AM. Rate has decreased from 1 34-78. Chest x-ray: Cardiomegaly, pulmonary edema versus scattered infiltrate, no pneumothorax. This was reviewed and interpreted by myself the ER physician. Lab Review: Laboratory results were reviewed and interpreted by myself the emergency room physician. No leukocytosis. Hemoglobin normal at 14.5. BUN and creatinine are near her baseline at 21 and 1.1. No hyperkalemia. Initial troponin is slightly elevated at 65. I reviewed the patient's medical record. Reexamination: Patient appears quite a bit improved. Heart rate has come down. Blood pressure has come down. BiPAP and Lasix. Patient appears much more stable now than she did. Work of breathing is much improved. After talking with hospitalist epistatic take her off the BiPAP at this point. My consultation: I spoke with Dr. Carrillo who is admitting the patient. Assessment and plan: Congestive heart failure with acute exacerbation Mild hypertension Hypoxemic respiratory failure Non-ST elevation myocardial infarction ?80 mg IV Lasix and placed on BiPAP with much improvement. -Previous normal heart cath. Likely elevation in troponin secondary to hypoxemia and hypotension creating heart strain -I discussed the patient with the hospitalist on-call who is admitting the patient. - Discussed findings and plan with patient. Answered any questions. - All laboratory values were reviewed and interpreted personally by myself, the ER physician - All imaging was reviewed and interpreted personally by myself, the ER physician. - Evaluation and treatment of this problem were appropriate in the emergency setting Critical care -I spent a total of >35 minutes of critical care time managing the patient, independent of any other practitioner. -The time involved in the performance of separately reportable procedures was not counted towards critical care time. Lab Data 07/09/24 06:21 07/09/24 06:21 Labs/Radiology: Radiology Impressions Chest X-Ray 07/09/24 06:11 IMPRESSION: 1. Diffuse interstitial edema. 2. Consider CHF. Laboratory Results WBC 10.11 10^3/uL (3.29-11.43) 07/09/24 06:21 RBC 5.00 10^6/uL (3.85-5.65) 07/09/24 06:21 Hgb 14.50 g/dL (11.27-16.99) 07/09/24 06:21 Hct 47.2 % (36-47) H 07/09/24 06:21 MCV 94.4 fl (85-98) 07/09/24 06:21 MCH 29.0 pg (27-33) 07/09/24 06:21 MCHC 30.7 g/dL (30-55) 07/09/24 06:21 RDW 13.8 % (12.1-15.1) 07/09/24 06:21 Plt Count 238 10^3/cmm (157-399) 07/09/24 06:21 MPV 10.8 fL (7.4-10.4) H 07/09/24 06:21 Neut % (Auto) 34.2 % 07/09/24 06:21 Lymph % (Auto) 49.8 % 07/09/24 06:21 [place] % (Auto) 9.1 % 07/09/24 06:21 Eos % (Auto) 5.3 % 07/09/24 06:21 Baso % (Auto) 1.3 % 07/09/24 06:21 Neut # (Auto) 3.46 10^3/uL (1.8-7.7) 07/09/24 06:21 Lymph # (Auto) 5.0 10^3/uL (0.8-4.8) H 07/09/24 06:21 [place] # (Auto) 0.9 10^3/uL (0.2-0.9) 07/09/24 06:21 Eos # (Auto) 0.5 10^3/uL (0.0-0.8) 07/09/24 06:21 Baso # (Auto) 0.1 10^3/uL (0.0-0.1) 07/09/24 06:21 Nucleated RBC % (auto) 0 % 07/09/24 06:21 Nucleated RBCs # 0.0 /100WBC 07/09/24 06:21 Specimen Type Arterial 07/09/24 06:32 Sample Site Brachial, left 07/09/24 06:32 ABG pH 7.34 (7.35-7.45) L 07/09/24 06:32 ABG pCO2 43.6 mmHg (35-45) 07/09/24 06:32 ABG pO2 64.2 mmHg (80.0-100.0) L 07/09/24 06:32 ABG PO2/FiO2 Ratio 160 07/09/24 06:32 ABG HCO3 23.6 mmol/L (22-26) 07/09/24 06:32 ABG O2 Saturation 92.0 07/09/24 06:32 ABG Base Excess -2.2 mmol/L (-2.0-2.0) L 07/09/24 06:32 Andrew Test N/a 07/09/24 06:32 A-a O2 Gradient 21.8 mmHg (5-10) H 07/09/24 06:32 Hematocrit 42.3 % (37-47) 07/09/24 06:32 Hgb O2 Saturation 90.6 % (95-100) L 07/09/24 06:32 Carboxyhemoglobin 0.9 %THgb (0.4-20.1) 07/09/24 06:32 Methemoglobin 0.6 % (0.4-1.5) 07/09/24 06:32 Total Hemoglobin 13.8 g/dL (12-16) 07/09/24 06:32 Sodium 144.0 mmol/L (131-143) H 07/09/24 06:32 Potassium 3.2 mmol/L (3.5-5.0) L 07/09/24 06:32 Glucose 223.0 mg/dL (70-115) H 07/09/24 06:32 Ionized Calcium 1.2 mmol/L (1.1-1.4) 07/09/24 06:32 O2 Delivery Device Bipap 07/09/24 06:32 FiO2 40.0 % 07/09/24 06:32 Sewing Machine Repairer Helper ID Ed 07/09/24 06:32 Sodium 144 mmol/L (136-145) 07/09/24 06:21 Potassium 4.6 mmol/L (3.5-5.1) 07/09/24 06:21 Chloride 106 mmol/L (98-107) 07/09/24 06:21 Carbon Dioxide 24 mmol/L (22-29) 07/09/24 06:21 Anion Gap 18.6 (5-19) 07/09/24 06:21 BUN 21 mg/dL (8-23) 07/09/24 06:21 Creatinine 1.1 mg/dL (0.5-0.9) H 07/09/24 06:21 GFR Calculation Not Reportable 07/09/24 06:21 Glucose 156 mg/dL (65-115) H 07/09/24 06:21 Calculated Osmolality 304 mOsm/kg (285-295) H 07/09/24 06:21 Lactic Acid 2.5 mmol/L (0.5-2.2) H 07/09/24 07:00 Calcium 9.6 mg/dL (8.5-10.5) 07/09/24 06:21 Phosphorus 4.1 mg/dL (2.5-4.5) 07/09/24 06:21 Total Bilirubin 0.9 mg/dL (0.15-1.2) 07/09/24 06:21 AST 23 U/L (0-32) 07/09/24 06:21 ALT 11 U/L (0-33) 07/09/24 06:21 Alkaline Phosphatase 61 U/L (35-105) 07/09/24 06:21 Troponin T Baseline 65 ng/L (0-10) H 07/09/24 06:21 Troponin T 120 Minute 131.1 ng/L (0-10) H 07/09/24 08:22 Delta Troponin T 66.1 ABS# (0-10) H* 07/09/24 08:22 C-Reactive Protein 3.8 mg/L (0.0-4.9) 07/09/24 06:21 NT-Pro-B Natriuret Pep 8467 pg/mL (0-125) H 07/09/24 06:21 Total Protein 7.8 g/dL (6.6-8.7) 07/09/24 06:21 Albumin 4.5 g/dL (3.5-5.2) 07/09/24 06:21 Globulin 3.3 g/dL (1.3-4.6) 07/09/24 06:21 Coronavirus (PCR) Negative (Negative) 07/09/24 06:21 Influenza A (PCR) Negative (Negative) 07/09/24 06:21 Influenza Type B (PCR) Negative (Negative) 07/09/24 06:21 RSV (PCR) Negative (Negative) 07/09/24 06:21 All radiology interpretation(s) finalized by discharge Discharge Plan Discharge Patient Disposition: Admitted As Inpatient Clinical Impression: Acute exacerbation of congestive heart failure, Hypoxemia, Respiratory failure, Malignant hypertension Condition: Stable Coding Level of Care Code ED Sheet Ironworker for Eliazar Loomis
[2024-07-09] MEDS: FUROsemide 10 mg/mL SDV 10mL 80 MG IVP (06:16)
[2024-07-09 06:43] LABS: ABG PCO2 43.6 mmHg (35-45); ABG PH Result 7.34 (7.35-7.45); Alveolar-Arterial Oxygen Gradi 21.8 mmHg (5-10); Arterial Blood Gas Hematocrit 42.3 % (37-47); Base Excess ABG -2.2 mmol/L (-2.0-2.0); Blood Gas Operator Identificat ED; Blood Gas Sample Site Brachial, left; Blood Gas Sample Type Arterial; Carboxyhemoglobin 0.9 %THgb (0.4-20.1); HCO3 ABG 23.6 mmol/L (22-26); HGB O2 Sat 90.6 % (95-100); Ionized Calcium Level - ABG 1.2 mmol/L (1.1-1.4); Methemoglobin 0.6 % (0.4-1.5); Oxygen Device BIPAP; PO2 ABG 64.2 mmHg (80.0-100.0); PO2 FiO2 Ratio Arterial Blood 160; Potassium Level - ABG 3.2 mmol/L (3.5-5.0); Total Hemoglobin 13.8 g/dL (12-16)
[2024-07-09 06:49] LABS: Troponin(5th) Baseline 65 ng/L (0-10)
[2024-07-09 06:57] LABS: Alanine Aminotransferase 11 U/L (0-33); Albumin Level 4.5 g/dL (3.5-5.2); Alkaline Phosphatase 61 U/L (35-105); Anion Gap 18.6 (5-19); Aspartate Amino Transferase 23 U/L (0-32); Blood Urea Nitrogen 21 mg/dL (8-23); C Reactive Protein 3.8 mg/L (0.0-4.9); Calcium 9.6 mg/dL (8.5-10.5); Carbon Dioxide 24 mmol/L (22-29); Chloride 106 mmol/L (98-107); Creatinine Clr Calc Pharmacy 44.4479; Globulin 3.3 g/dL (1.3-4.6); Glucose 156 mg/dL (65-115); NT Pro B Type Natriuretic Pept 8467 pg/mL (0-125); Osmolality Calculated 304 mOsm/kg (285-295); Phosphorus 4.1 mg/dL (2.5-4.5); Potassium 4.6 mmol/L (3.5-5.1); Sodium 144 mmol/L (136-145); Total Bilirubin 0.9 mg/dL (0.15-1.2); Total Protein 7.8 g/dL (6.6-8.7)
[2024-07-09 07:27] LABS: Covid PCR NEGATIVE (Negative); Influenza A NEGATIVE (Negative); Influenza B NEGATIVE (Negative); Respiratory Syncytial Virus Ce NEGATIVE (Negative)
[2024-07-09 07:34] LABS: Lactic Sepsis W/Reflex 2.5 mmol/L (0.5-2.2)
--- NOTE | 2024-07-09 08:00 | PC.NURSE ---
refused brown insertion
[2024-07-09 08:08] LABS: Basophils # 0.1 10^3/uL (0.0-0.1); Basophils % 1.3 %; Eosinophils # 0.5 10^3/uL (0.0-0.8); Eosinophils % 5.3 %; Hematocrit 47.2 % (36-47); Lymphocytes % 49.8 %; Mean Corpuscular HGB Conc 30.7 g/dL (30-55); Mean Corpuscular Volume 94.4 fl (85-98); Mean Platelet Volume 10.8 fL (7.4-10.4); Monocytes # 0.9 10^3/uL (0.2-0.9); Monocytes % 9.1 %; Neutrophils # 3.46 10^3/uL (1.8-7.7); Neutrophils % 34.2 %; Nucleated Red Blood Cells % 0 %; Platelet Count 238 10^3/cmm (157-399); Red Cell Distribution Width 13.8 % (12.1-15.1); White Blood Count 10.11 10^3/uL (3.29-11.43)
--- NOTE | 2024-07-09 08:20 | ECG_ITS ---
[facility] Test Date: 2024-07-09 Pat Name: Tiesha Wray Department: Room: Gender: Female Territory Account Representative: : 1950 Requested By: Laurita Herrera Order Number: [id number] Mayorga MD: Keith Peterson M.D. Measurements Intervals [place] Rate: 78 P: 24 [place]: 168 QRS: -6 QRSD: 153 T: 167 QT: 443 QTc: 505 Interpretive Statements SINUS RHYTHM WITH OCCASIONAL VENTRICULAR PREMATURE COMPLEXES POSSIBLE LEFT ATRIAL ENLARGEMENT [-0.1mV P-WAVE IN V1/V2] LEFT BUNDLE BRANCH BLOCK [120+ ms QRS DURATION, 80+ ms Q/S IN V1/V2, 85+ ms R IN I/aVL/V5/V6] Compared to ECG 07/09/2024 06:05:33 Ventricular premature complex(es) now present Sinus tachycardia no longer present Electronically Signed On 07-09-2024 16:09:47 CDT by Keith Peterson M.D. [email or web address].[email or web address]/[id number]
--- NOTE | 2024-07-09 08:25 | PC.PHAR ---
Patient states she takes powdered cinnamon on her toast daily and drinks 2 tablespoons applecider vinager mixed with 2 tablespoons olive oil and 8oz of water daily
--- NOTE | 2024-07-09 08:50 | P.HP_ITS ---
Providers/Chief Complaint 2 Admitting Physician: Zechariah Carrillo MD Primary Care Provider: Armando Chung DO Chief Complaint: congested/sob History of Present Illness Tiesha Wray is a 73 year old female with past history of aortic stenosis, hypertension, paroxysmal atrial fibrillation presenting to the hospital with significant shortness of breath. This started yesterday, and worsened through the night. She denies any chest discomfort. She has not had any fevers. She has had a cough, but not necessarily productive of sputum. Was nauseous this morning. No diarrhea, or other sick contacts. No blood in stool or black or tarry stool. No significant palpitations. She has not been on really any blood pressure medications in the last several months. She was previously on lisinopril. On arrival to the emergency department she was markedly hypertensive. She was placed on BiPAP secondary to severe shortness of breath, and 80 mg of Lasix IV was given. Review of Systems 2 General: Reports: 10 or more systems reviewed and unremarkable except in HPI and below Card: Reports: dyspnea on exertion; Denies: chest pain Resp: Reports: dyspnea and non-productive cough GI: Reports: nausea; Denies: abdominal pain, hematochezia or melena Medications/Allergies Home Medications Medication Instructions Recorded Confirmed Last Taken Type ascorbate calcium (vitamin C) 500 500 mg PO BID 03/14/23 07/09/24 07/08/24 History mg tablet magnesium oxide 400 mg PO TID 03/14/23 07/09/24 07/08/24 History vitamin D3 125 mcg (5,000 2 cap PO DAILY 03/14/23 07/09/24 07/08/24 History unit)-vitamin K2 90 mcg capsule aspirin 81 mg tablet,delayed 81 mg PO .3XW 07/09/24 07/09/24 07/08/24 History release (Adult Low Dose Aspirin) flaxseed oil 1,000 mg capsule 1,000 mg PO DAILY 07/09/24 07/09/24 07/08/24 History garlic 100 mg tablet 100 mg PO BID 07/09/24 07/09/24 07/08/24 History lisinopril 10 mg tablet 1 mg PO 1XD PRN if blood pressure 07/09/24 07/09/24 Unknown History is high Allergies Allergy/AdvReac Type Severity Reaction Status Date / Time codeine Allergy blood Verified 07/09/24 06:15 disorder diltiazem Allergy dizzy weak Verified 07/09/24 06:15 metoprolol Allergy dry mouth Verified 07/09/24 06:15 cracked lips lisinopril Allergy Severe Mouth Uncoded 07/09/24 06:15 hydrochlorothiazide blisters PFSH Acute 2 PFSH: Medical History (Updated 07/09/24 @ 09:43 by Zechariah Carrillo MD) Aortic stenosis Pseudoaneurysm of artery of upper extremity History of fracture Hypertension Atrial fibrillation CHF (congestive heart failure) Surgical History H/O: section Family History Father CAD (coronary artery disease) Myocardial infarction Sister Cancer Social History Smoking and tobacco/nicotine status: current every day tobacco/nicotine user Quit status (tobacco/nicotine): has quit using Alcohol intake: never Substance/Drug Use: never Vitals/I&O/Wt Last Vital Signs Temp 97.6 F 07/09/24 06:03 Pulse 128 H 07/09/24 06:34 Resp 24 H 07/09/24 06:34 BP 212/140 07/09/24 06:34 Pulse Ox 91 07/09/24 06:35 O2 Del Method BiPAP 07/09/24 06:34 FiO2 40 07/09/24 06:35 Weight last 48 hrs Weight 77.111 kg Physical Exam 2 Narrative: General exam is white female, currently on BiPAP, who does not appear distressed. HEENT: Atraumatic and normocephalic. Oropharynx not examined as she is on BiPAP Neck is supple no lymphadenopathy thyromegaly Cardiovascular regular rate and rhythm, I do not auscultate a murmur Lungs clear currently Abdomen is soft, nontender Extremities no cyanosis clubbing or edema, no obvious organomegaly Skin no rash Neuro no obvious focal deficits Data 07/09/24 06:21 07/09/24 06:21 Other Labs: ABG demonstrated a pH 7.34, pCO2 of 44, pO2 of 64 on 40% BiPAP Lactic acid 2.5 Calcium and albumin are normal LFTs are normal Troponin 65 and repeat 131 CRP 3.8 BNP 8500 Mg 2.2 COVID testing negative Urinalysis is ordered Chest x-ray which I reviewed demonstrates cardiomegaly, interstitial edema consistent with CHF. Atherosclerotic disease EKG which I reviewed demonstrates sinus tachycardia, left bundle branch block. Second EKG demonstrates sinus rhythm with a rate of 75, left bundle branch block Micro: Microbiology 07/09/24 07:00 Blood Culture - Preliminary Blood SPECIMEN COLLECTED 07/09/24 07:01 Blood Culture - Preliminary Blood SPECIMEN COLLECTED A&P Assessment and plan (1) Hypertensive emergency: Patient presents with hypertensive emergency She received Lasix IV. Blood pressure is improved Consider reinitiating the patient's a summa or perhaps an ARB Continue to monitor closely, blood pressures left arm only (2) Acute exacerbation of congestive heart failure: Patient presents with acute congestive heart failure/acute pulmonary edema. Likely this is from hypertensive emergency. Check echocardiogram Consider reinstituting the patient's LEIGHTON inhibitor. I will discuss with the patient this morning. Unfortunately, she is resistant to taking many medications. Significant troponin elevation, in the face of marked elevation of blood pressure and pulmonary edema. Angiogram was negative in 1999. Patient is resistant to many medication changes. Will discuss if she will allow full anticoagulation, nuclear stress testing, beta-angle. Will continue her aspirin at home. (3) Atrial fibrillation: Patient with history of paroxysmal atrial fibrillation. She is only on aspirin for anticoagulation secondary to her desire. There are no EKGs consistent with atrial fibrillation on admission here. Telemetry TSH and magnesium were checked and normal Patient is resistant to many medication changes. I will discuss with her the use of a low-dose beta-angle Qualifiers: Atrial fibrillation type: paroxysmal Qualified Code(s): I48.0 - Paroxysmal atrial fibrillation (4) Aortic stenosis: Patient with past history of aortic stenosis Echocardiogram will be ordered Qualifiers: Cardiac valve disease etiology: nonrheumatic Qualified Code(s): I35.0 - Nonrheumatic aortic (valve) stenosis (5) Respiratory failure: Patient presents with acute hypoxic respiratory failure secondary to acute pulmonary edema and hypertension. She required BiPAP, but is weaning off. Hopefully she will not need any oxygen. Plan Hyperglycemia. Check hemoglobin A1c Multiple other medical problems as outlined in past medical history Full code Lovenox and SCDs for DVT prophylaxis Attestations 2 Medical Necessity Statement*: Require less than 2 midnight stay for evaluation and treatment of hypertensive emergency with acute pulmonary edema Diagnoses Hypertensive emergency I16.1 Acute exacerbation of congestive heart failure I50.9 Paroxysmal atrial fibrillation I48.0 Atrial fibrillation type: paroxysmal Nonrheumatic aortic valve stenosis I35.0 Cardiac valve disease etiology: nonrheumatic Respiratory failure J96.90 Time Spent (min) 54
[2024-07-09 08:52] LABS: Troponin 5 2HR 131.1 ng/L (0-10)
[2024-07-09 08:53] LABS: Troponin 5 2HR Delta 66.1 ABS# (0-10)
--- NOTE | 2024-07-09 08:53 | USCV_ITS ---
Tiesha Wray Age: 73 Gender: F : 1950 Exam Date: 07/09/2024 14:14 Ordering Phys: Zechariah Carrillo MD Technologist: Exam [place] [facility] [place]: cp as BP: / HR: 82 Rhythm: Sinus Technical Quality: Adequate MEASUREMENTS (Male / Female) Normal Values 2D ECHO LV Diastolic Diameter PLAX 4.7 cm 4.2 - 5.9 / 3.9 - 5.3 cm IVS Diastolic Thickness 1.1 cm 0.6 - 1.0 / 0.6 - 0.9 cm IVS Systolic Thickness 1.7 cm LVPW Diastolic Thickness 1.3 cm 0.6 - 1.0 / 0.6 - 0.9 cm LVPW Systolic Thickness 1.4 cm LVOT Diameter 2.0 cm LV Ejection Fraction 2D Teich 41.0 % LV Ejection Fraction MOD 4C 34.1 % LV Ejection Fraction MOD 2C 47.0 % LV Ejection Fraction 2C AL 48.6 % LA Diameter 3.6 cm RA Systolic Volume 4C AL 39.3 ml RA Systolic Volume 4C MOD 39.4 ml Aorta at Sinotubular Diameter 2.6 cm M-MODE LA Ao Ratio MM 1.4 AV Cusp Separation MM 1.3 cm DOPPLER AV Peak Velocity 275.7 cm/s LVOT Peak Velocity 84.0 cm/s AV Area Cont Eq vti 0.9 cm squared AV Area Cont Eq pk 1.0 cm squared MV Area PHT 5.0 cm squared Mitral E to A Ratio 3.5 TV Peak Velocity 185.0 cm/s TR Peak Velocity 207.0 cm/s TR Peak Gradient 17.1 mmHg TV Peak E Velocity 101.0 cm/s Right Atrial Pressure 3.0 mmHg Pulmonary Artery Systolic Pressu 20.1 mmHg PV Peak Velocity 114.0 cm/s FINDINGS Left Ventricle Diffuse hypokinesia of the left ventricle with ejection fraction of around 40%.abnormal septal motion consistent with conduction abnormality. Grade I/IV diastolic dysfunction (abnormal relaxation filling pattern), normal to mildly elevated filling pressures. Right Ventricle The right ventricle is normal in size and function. Right Atrium The right atrium is normal in size. Left Atrium Mildly increased left atrial size. Mitral Valve Mild mitral valve regurgitation. Aortic Valve Moderately severe aortic valve stenosis with a valve area of 1.0 cm squared. Peak velocity of 2.76 m/s, peak gradient of 32 with a mean gradient of 12 mmHg Tricuspid Valve Trace tricuspid valve regurgitation. Pulmonic Valve No gross abnormalities noted Pericardium No pericardial effusion. Aorta Normal ascending aorta dimension. IVC Inferior vena cava not visualized. CONCLUSIONS Diffuse hypokinesia of the left ventricle with ejection fraction of around 40%.abnormal septal motion consistent with conduction abnormality. Grade I/IV diastolic dysfunction (abnormal relaxation filling pattern), normal to mildly elevated filling pressures. Moderately severe aortic valve stenosis with a valve area of 1.0 cm squared. Peak velocity of 2.76 m/s, peak gradient of 32 with a mean gradient of 12 mmHg. Mildly increased left atrial size. Mild mitral valve regurgitation. Trace tricuspid valve regurgitation. Estimated pulmonary artery peak systolic pressure within normal limits There is no pericardial effusion. There are no intracardiac masses. Compared to the study from 02/17/2022, there is a significant drop in the LV ejection fraction and slight worsening of the aortic valve stenosis(LV ejection fraction was 65% and aortic valve area of 1.1 cm squared) Dr Radha Camarena MD FACC (Electronically Signed) Final Date: 10 July 2024 13:23 S
[2024-07-09 08:56] LABS: Reflex Lactate Order REFLEX LACTIC ORDERD
[2024-07-09 09:36] LABS: Magnesium 2.2 mg/dL (1.7-2.3)
[2024-07-09 10:32] LABS: Estmated Average Glucose 97
[2024-07-09] MEDS: lisinopril 10 mg Tablet PO (10:54)
[2024-07-09 11:07] LABS: Lactic Acid level (Lactate) 1.9 mmol/L (0.5-2.2)
[2024-07-09 11:39] LABS: Specific Gravity, Urine 1.015 (1.005-1.030); Urine Appearance Clear (CLEAR); Urine Color Yellow (Yellow); pH Urine 5 (5-7)
[2024-07-09 11:40] LABS: Add Urine Culture? No; Bilirubin Urine Neg (Negative); Blood Urine Neg (Negative); Glucose Urine UA Norm (Normal); Ketones Urine Negative (Negative); Leukocyte Esterase Urine Negative (Negative); Nitrate Urine Negative (Negative); Protein Urine Neg (Negative); Urobilinogen Urine Norm (Negative)
--- NOTE | 2024-07-09 12:47 | PC.NURSE ---
Patient transferred from ED to CSU at 1245 via wheelchair.
--- NOTE | 2024-07-09 13:06 | ECG_ITS ---
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 Measurements Intervals [place] Rate: 79 P: 39 ME: 189 QRS: 0 QRSD: 161 T: 161 QT: 446 QTc: 514 Interpretive Statements SINUS RHYTHM WITH OCCASIONAL VENTRICULAR PREMATURE COMPLEXES POSSIBLE LEFT ATRIAL ENLARGEMENT [-0.1mV P-WAVE IN V1/V2] LEFT BUNDLE BRANCH BLOCK [120+ ms QRS DURATION, 80+ ms Q/S IN V1/V2, 85+ ms R IN I/aVL/V5/V6] Compared to ECG 07/09/2024 08:20:22 No significant changes Electronically Signed On 07-09-2024 16:05:05 CDT by Keith Peterson M.D. [email or web address]
--- NOTE | 2024-07-09 14:04 | PC.NURSE ---
Patient is refusing a brown catheter at this time. I asked patient to urinate in a hat so that we can measure her output.
[2024-07-09 14:28] LABS: Troponin 5 6HR 113.5 ng/L (0-10); Troponin 5 6HR Delta 48.5 ng/L (0-12)
[2024-07-10] VITALS (7 sets, daily range): BP systolic 122–157; BP diastolic 59–89; PULSE 64–77; RESP 15–22; TEMP 36.7–37.1; O2SAT 94–97
[2024-07-10 04:03] LABS: Basophils # 0.1 10^3/uL (0.0-0.1); Basophils % 1.1 %; Eosinophils # 0.3 10^3/uL (0.0-0.8); Eosinophils % 4.1 %; Lymphocytes # 2.3 10^3/uL (0.8-4.8); Lymphocytes % 31.2 %; Mean Corpuscular HGB Conc 31.1 g/dL (30-55); Mean Corpuscular Hemoglobin 28.6 pg (27-33); Mean Corpuscular Volume 92.2 fl (85-98); Mean Platelet Volume 10.1 fL (7.4-10.4); Monocytes # 0.7 10^3/uL (0.2-0.9); Monocytes % 9.3 %; Neutrophils # 4.01 10^3/uL (1.8-7.7); Neutrophils % 54.2 %; Nucleated Red Blood Cells % 0 %; Platelet Count 183 10^3/cmm (157-399); Red Blood Count 4.12 10^6/uL (3.85-5.65); Red Cell Distribution Width 13.8 % (12.1-15.1)
[2024-07-10 04:25] LABS: Alanine Aminotransferase 10 U/L (0-33); Albumin Level 3.9 g/dL (3.5-5.2); Alkaline Phosphatase 47 U/L (35-105); Aspartate Amino Transferase 27 U/L (0-32); Blood Urea Nitrogen 23 mg/dL (8-23); Carbon Dioxide 29 mmol/L (22-29); Chloride 99 mmol/L (98-107); Creatinine Clr Calc Pharmacy 45.0285; Glucose 109 mg/dL (65-115); Magnesium 1.9 mg/dL (1.7-2.3); Osmolality Calculated 288 mOsm/kg (285-295); Sodium 137 mmol/L (136-145); Total Protein 6.9 g/dL (6.6-8.7)
[2024-07-10] MEDS: bumetanide 1 mg Tablet 0.5 MG PO (08:32)
[2024-07-10] MEDS: lisinopril 5 mg Tablet PO (08:32)
[2024-07-10] MEDS: aspirin 81 mg EC Tablet PO (08:32)
--- NOTE | 2024-07-10 09:26 | PC.CHAP ---
Pastoral Care Encounter/Spiritual Assessment Type of Contact [] Declined printed circuit boards stripper etcher visit [] Patient/Family/Request visit [] Outpatient visit [] Follow-up visit [] Physician referral [] Code/Alert [x] Routine visit [] Staff referral [] Actively dying [] Patient sleeping [] Family support [] [] Out of room [] Palliative care [] [] Receiving care in room [] Pre-surgical visit [] Trauma [] Long length of stay [] ICU visit [] Other: Relational/Emotional Strength [x] Patient feels connected with others/family/visitors/staff [] Distress [] Loneliness/isolation [] Abandonment Spirituality of Patient [x] Person of Grace [] Attends Hindu of their Grace [x] Believes in Prayer [] Reads Bible or Amish materials [] There are Spiritual issues to be addressed Base Ply Hand Interventions [x] Prayer [x] Active listening [] Non-anxious presence [x] Spiritual/emotional support [] Crisis/trauma care [] Spiritual counseling [] Bereavement support [] Provided bereavement packet [] Provided Bible/devotional materials [] Provided toy/stuffed animal, coloring book to patient or family member [] Provided Communion [] Anointing/[place] [] Salvation [x] Completed spiritual assessment [] Other: Impact on Illness or Injury [] Angry [] Fearful [] Anxious [] Often cries [] Exhaustion [] Unable to work [] Unable to attend zoroastrian [] Unable to walk/stand [] Unable to read [] Unable to drive [] Unable to eat/drink [] Unable to sleep [] Unable to be with family [] Patient intubated [] Other: Summary Time spent with patient 5 min
--- NOTE | 2024-07-10 13:34 | P.DS_ITS ---
Discharge Providers Date of Admission: 07/09/24 11:55 Date of Discharge: July 10, 2024 Attending Provider at Admission: Zechariah Carrillo MD Attending Provider at Discharge: Zechariah Carrillo MD Primary Care Provider: Armando Chung DO Diagnoses at Discharge Discharge Diagnosis (1) Hypertensive emergency: Status: Acute (2) Acute exacerbation of congestive heart failure: Status: Acute (3) Atrial fibrillation: Status: Acute Qualifiers: Atrial fibrillation type: paroxysmal Qualified Code(s): I48.0 - Paroxysmal atrial fibrillation (4) Aortic stenosis: Status: Acute Qualifiers: Cardiac valve disease etiology: nonrheumatic Qualified Code(s): I35.0 - Nonrheumatic aortic (valve) stenosis (5) Respiratory failure: Status: Acute Reason for Visit Reason for Visit: congested/sob Hospital Course Hospital Course Patient is a 73-year-old white female who presented to the hospital with significant shortness of breath requiring oxygen. She was found to be in acute pulmonary edema. Troponin was initially 65 and slowly matt to 131 and then 113 at 6 hours. Blood pressure was markedly elevated on presentation. She was given Lasix in the emergency department with excellent response, improved blood pressure, and was able to wean off BiPAP to room air. I discussed with her the importance of daily medicines, and further workup of her acute pulmonary edema. She has a past history of cardiomyopathy. She had an angiogram that showed no significant disease in 2018. She was resistant for medicines, and even further workup. After his significant amount of explanation, I was able to get her to agree to resume LEIGHTON inhibitor on a consistent basis, take a low-dose of diuretic, and take aspirin daily. She refused any nuclear stress test or angiogram. Risks of not following through with other testing was discussed with the patient including and/or disability. She ultimately was discharged from the hospital on July 10. She was on room air at that time with a blood pressure of approximately 140/80. She will follow-up with cardiology as well as her primary care provider. Echo was performed while she was in the hospital demonstrating moderately to severe aortic stenosis with valve area 1 cm?, and her EF was approximately 40%. Physical Exam Narrative: General Exam no distress Neck is supple Cardiovascular regular rate and rhythm Lungs clear Abdomen soft Extremities no cyanosis clubbing edema Discharge Data Studies Completed and Pending Completed Studies During Hospitalization Category Date Time Status XR chest 1V portable [id number] Stat Exams 07/09/24 06:11 Completed CV. echo complete* [id number] Routine Ultrasound 07/09/24 08:53 Completed Pending at discharge Category Date Time Status Blood Culture Stat Lab 07/09/24 07:00 Results Radiology Impressions Chest X-Ray 07/09/24 06:11 IMPRESSION: 1. Diffuse interstitial edema. 2. Consider CHF. Laboratory Results WBC 7.40 10^3/uL (3.29-11.43) 07/10/24 03:41 RBC 4.12 10^6/uL (3.85-5.65) 07/10/24 03:41 Hgb 11.80 g/dL (11.27-16.99) 07/10/24 03:41 Hct 38.0 % (36-47) 07/10/24 03:41 MCV 92.2 fl (85-98) 07/10/24 03:41 MCH 28.6 pg (27-33) 07/10/24 03:41 MCHC 31.1 g/dL (30-55) 07/10/24 03:41 RDW 13.8 % (12.1-15.1) 07/10/24 03:41 Plt Count 183 10^3/cmm (157-399) 07/10/24 03:41 MPV 10.1 fL (7.4-10.4) 07/10/24 03:41 Neut % (Auto) 54.2 % 07/10/24 03:41 Lymph % (Auto) 31.2 % 07/10/24 03:41 [place] % (Auto) 9.3 % 07/10/24 03:41 Eos % (Auto) 4.1 % 07/10/24 03:41 Baso % (Auto) 1.1 % 07/10/24 03:41 Neut # (Auto) 4.01 10^3/uL (1.8-7.7) 07/10/24 03:41 Lymph # (Auto) 2.3 10^3/uL (0.8-4.8) 07/10/24 03:41 [place] # (Auto) 0.7 10^3/uL (0.2-0.9) 07/10/24 03:41 Eos # (Auto) 0.3 10^3/uL (0.0-0.8) 07/10/24 03:41 Baso # (Auto) 0.1 10^3/uL (0.0-0.1) 07/10/24 03:41 Nucleated RBC % (auto) 0 % 07/10/24 03:41 Nucleated RBCs # 0.0 /100WBC 07/10/24 03:41 Specimen Type Arterial 07/09/24 06:32 Sample Site Brachial, left 07/09/24 06:32 ABG pH 7.34 (7.35-7.45) L 07/09/24 06:32 ABG pCO2 43.6 mmHg (35-45) 07/09/24 06:32 ABG pO2 64.2 mmHg (80.0-100.0) L 07/09/24 06:32 ABG PO2/FiO2 Ratio 160 07/09/24 06:32 ABG HCO3 23.6 mmol/L (22-26) 07/09/24 06:32 ABG O2 Saturation 92.0 07/09/24 06:32 ABG Base Excess -2.2 mmol/L (-2.0-2.0) L 07/09/24 06:32 Andrew Test N/a 07/09/24 06:32 A-a O2 Gradient 21.8 mmHg (5-10) H 07/09/24 06:32 Hematocrit 42.3 % (37-47) 07/09/24 06:32 Hgb O2 Saturation 90.6 % (95-100) L 07/09/24 06:32 Carboxyhemoglobin 0.9 %THgb (0.4-20.1) 07/09/24 06:32 Methemoglobin 0.6 % (0.4-1.5) 07/09/24 06:32 Total Hemoglobin 13.8 g/dL (12-16) 07/09/24 06:32 Sodium 144.0 mmol/L (131-143) H 07/09/24 06:32 Potassium 3.2 mmol/L (3.5-5.0) L 07/09/24 06:32 Glucose 223.0 mg/dL (70-115) H 07/09/24 06:32 Ionized Calcium 1.2 mmol/L (1.1-1.4) 07/09/24 06:32 O2 Delivery Device Bipap 07/09/24 06:32 FiO2 40.0 % 07/09/24 06:32 Motors Assembler ID Ed 07/09/24 06:32 Sodium 137 mmol/L (136-145) 07/10/24 03:41 Potassium 4.0 mmol/L (3.5-5.1) 07/10/24 03:41 Chloride 99 mmol/L (98-107) 07/10/24 03:41 Carbon Dioxide 29 mmol/L (22-29) 07/10/24 03:41 Anion Gap 13.0 (5-19) 07/10/24 03:41 BUN 23 mg/dL (8-23) 07/10/24 03:41 Creatinine 1.1 mg/dL (0.5-0.9) H 07/10/24 03:41 GFR Calculation Not Reportable 07/10/24 03:41 Glucose 109 mg/dL (65-115) 07/10/24 03:41 Estimat Average Glucose 97 07/09/24 06:21 Hemoglobin A1c 5.0 % (4.0-6.0) 07/09/24 06:21 Calculated Osmolality 288 mOsm/kg (285-295) 07/10/24 03:41 Lactic Acid 2.5 mmol/L (0.5-2.2) H 07/09/24 07:00 Lactic Acid (Sepsis) 1.9 mmol/L (0.5-2.2) 07/09/24 10:18 Calcium 9.0 mg/dL (8.5-10.5) 07/10/24 03:41 Phosphorus 4.1 mg/dL (2.5-4.5) 07/09/24 06:21 Magnesium 1.9 mg/dL (1.7-2.3) 07/10/24 03:41 Total Bilirubin 1.0 mg/dL (0.15-1.2) 07/10/24 03:41 AST 27 U/L (0-32) 07/10/24 03:41 ALT 10 U/L (0-33) 07/10/24 03:41 Alkaline Phosphatase 47 U/L (35-105) 07/10/24 03:41 Troponin T Baseline 65 ng/L (0-10) H 07/09/24 06:21 Troponin T 120 Minute 131.1 ng/L (0-10) H 07/09/24 08:22 Delta Troponin T 66.1 ABS# (0-10) H* 07/09/24 08:22 Troponin T Hi Sens 6Hr 113.5 ng/L (0-10) H 07/09/24 13:42 Troponin T Hi Sens 6Hr Delta 48.5 ng/L (0-12) H* 07/09/24 13:42 C-Reactive Protein 3.8 mg/L (0.0-4.9) 07/09/24 06:21 NT-Pro-B Natriuret Pep 8467 pg/mL (0-125) H 07/09/24 06:21 Total Protein 6.9 g/dL (6.6-8.7) 07/10/24 03:41 Albumin 3.9 g/dL (3.5-5.2) 07/10/24 03:41 Globulin 3.0 g/dL (1.3-4.6) 07/10/24 03:41 TSH 4.20 uIU/mL (0.27-4.20) 07/09/24 06:21 Urine Color Yellow (Yellow) 07/09/24 11:03 Urine Appearance Clear (CLEAR) 07/09/24 11:03 Urine pH 5 (5-7) 07/09/24 11:03 Ur Specific [place] 1.015 (1.005-1.030) 07/09/24 11:03 Urine Protein Neg (Negative) 07/09/24 11:03 Urine Glucose (UA) Norm (Normal) 07/09/24 11:03 Urine Ketones Negative (Negative) 07/09/24 11:03 Urine Blood Neg (Negative) 07/09/24 11:03 Urine Nitrate Negative (Negative) 07/09/24 11:03 Urine Bilirubin Neg (Negative) 07/09/24 11:03 Urine Urobilinogen Norm mg/dL (Negative) 07/09/24 11:03 Ur Leukocyte Esterase Negative (Negative) 07/09/24 11:03 Urine RBC None /hpf (0-2) 07/09/24 11:03 Urine WBC None /hpf (0-5) 07/09/24 11:03 Ur Squamous Epith Cells None /hpf (0-5) 07/09/24 11:03 Amorphous Sediment Not Reportable 07/09/24 11:03 Urine Bacteria None /hpf (NONE) 07/09/24 11:03 Urine Mucus None /hpf 07/09/24 11:03 Coronavirus (PCR) Negative (Negative) 07/09/24 06:21 Influenza A (PCR) Negative (Negative) 07/09/24 06:21 Influenza Type B (PCR) Negative (Negative) 07/09/24 06:21 RSV (PCR) Negative (Negative) 07/09/24 06:21 Vitals Last Vital Signs Temp 98.6 F 07/10/24 12:00 Pulse 75 07/10/24 12:00 Resp 15 07/10/24 12:00 BP 147/87 07/10/24 12:00 Pulse Ox 97 07/10/24 12:00 O2 Del Method Room Air 07/10/24 12:00 FiO2 40 07/09/24 08:35 Discharge Plan Discharge Patient Disposition: Home Condition: Stable Prescriptions: New bumetanide 1 mg Tablet 0.5 mg PO DAILY Qty: 15 0RF aspirin 81 mg Tablet,Delayed Release (Dr/Ec) 81 mg PO DAILY Qty: 30 0RF lisinopril 5 mg Tablet 5 mg PO BID Qty: 60 0RF Continued ascorbate calcium (vitamin C) 500 mg tablet 500 mg PO BID magnesium oxide 400 mg magnesium tablet 400 mg PO TID vitamin D3-vitamin K2 125-90 mcg capsule 2 cap PO DAILY garlic 100 mg Tablet 100 mg PO BID flaxseed oil 1,000 mg Capsule 1,000 mg PO DAILY Rx Instructions: administer with a meal Discontinued Adult Low Dose Aspirin 81 mg tablet,delayed release (DR/EC) 81 mg PO .3XW lisinopril 10 mg tablet 1 mg PO 1XD PRN (Reason: if blood pressure is high) Discharge Orders: Discharge Order (Routine); Ordered 07/10/24 Ordered By: Zechariah Carrillo Referrals: Melly Monson FNP [Nurse Practitioner] - 2 weeks Armando Chung DO [Primary Care Provider] - 4-7 days (We have notified your physician's clinic of the need for a follow-up appointment to be scheduled. If you have not heard from them within the next 2 business days, please call them directly. BMP on follow-up) Discharge Diet: Cardiac Discharge Activity: Increase activity as tolerated Patient Instructions: Aortic Stenosis (DC), Hypertension (DC), Chronic Re spiratory Failure (DC), CHF Stoplight, Opioid Safety Activity Restrictions/Additional Instructions: Take all medicine as prescribed Follow-up with your primary care provider for 7 days of BMP Follow-up with cardiology in 2 weeks You were diagnosed with CHF, and aortic stenosis. These conditions require follow-up and recheck. Return for any recurrent shortness of breath. Discharge Attestations Time Spent in Discharge Care*: greater than 30 min Quality Metrics Clinical Quality Measures [ No reported AMI, CVA or VTE this stay] Coding Level of Care Code 58978 Total time (in minutes) for Discharge: 46 Diagnoses Hypertensive emergency I16.1 Acute exacerbation of congestive heart failure I50.9 Paroxysmal atrial fibrillation I48.0 Atrial fibrillation type: paroxysmal Nonrheumatic aortic valve stenosis I35.0 Cardiac valve disease etiology: nonrheumatic Respiratory failure J96.90
--- NOTE | 2024-07-10 14:06 | PC.NURSE ---
discharge instructions given and explained.pt verb understanding of instructions.discharged via w/c to exit at this time.spouse to drive pt home
== END 2024-07-10 14:07 | disposition home or self-care (01) ==
LOC: ER 08:51 → CSU 11:56
PROVIDERS: Admitting Provider Internal Medicine; Emergency Provider Emergency Medicine; PCP Family Medicine; Visit Provider Internal Medicine
DX: J96.91 Respiratory failure, unspecified with hypoxia (principal); I35.0 Nonrheumatic aortic (valve) stenosis; I48.0 Paroxysmal atrial fibrillation; I11.0 Hypertensive heart disease with heart failure; I50.9 Heart failure, unspecified; I16.1 Hypertensive emergency; J81.1 Chronic pulmonary edema; F17.200 Nicotine dependence, unspecified, uncomplicated; R73.9 Hyperglycemia, unspecified; I25.2 Old myocardial infarction
CPT/HCPCS: 0241U; 36415; 36600; 71045; 80051; 80053; 81001; 82330; 82805; 83036; 83605; 83735; 83880; 84100; 84443; 84484; 85025; 86140; 87040; 93005; 93306; 96374; 96376; 99291; A9270; G0378; J1940

== ENCOUNTER → 2024-07-30 10:30 | Outpatient (BNVA) | payer MEDICARE, MEDICAID, SELFPAY | PROVIDERS: PCP Family Medicine; Visit Provider Family Medicine | DX: N28.9 Disorder of kidney and ureter, unspecified (principal); I50.42 Chronic combined systolic (congestive) and diastolic (congestive) heart failure | CPT/HCPCS: 80048 ==

== ENCOUNTER → 2024-10-02 14:52 | Outpatient (BNVA) | payer MEDICARE, MEDICAID, SELFPAY | PROVIDERS: PCP Family Medicine; Visit Provider Internal Medicine Cardiovascular Disease | DX: I35.0 Nonrheumatic aortic (valve) stenosis (principal); I11.0 Hypertensive heart disease with heart failure; I50.42 Chronic combined systolic (congestive) and diastolic (congestive) heart failure; I48.0 Paroxysmal atrial fibrillation; Z87.891 Personal history of nicotine dependence | CPT/HCPCS: 99213 ==

== ENCOUNTER 2025-01-01 12:58 | Outpatient (CLI) | payer MEDICARE, SELFPAY ==
[2025-01-01 14:07] LABS: Blood Urea Nitrogen 30 mg/dL (8-23); Carbon Dioxide 28 mmol/L (22-29); Chloride 99 mmol/L (98-107); Glucose 116 mg/dL (65-115); Osmolality Calculated 289 mOsm/kg (285-295); Sodium 136 mmol/L (136-145)
[2025-01-01 14:25] LABS: Anion Gap 13.8 (5-19); Potassium 4.8 mmol/L (3.5-5.1)
== END 2025-01-01 12:59 | disposition home or self-care (01) ==
LOC: LAB 13:01
PROVIDERS: PCP Family Medicine; Visit Provider Internal Medicine Cardiovascular Disease
DX: I50.42 Chronic combined systolic (congestive) and diastolic (congestive) heart failure (principal); I10 Essential (primary) hypertension
CPT/HCPCS: 36415; 80048

== ENCOUNTER 2025-02-11 10:58 | Outpatient (CLI) | payer MEDICARE, SELFPAY ==
--- NOTE | 2025-02-11 11:15 | USCV_ITS ---
Tiesha Wray Age: 74 Gender: F : 1950 Exam Date: 02/11/2025 11:13 Ordering Phys: Salome Wallis MD ([email or web address]) Technologist: Exam Location: [facility] [place] Indication: last echo 07/17 BP: 130 / 80 HR: 70 Rhythm: Sinus Technical Quality: Adequate MEASUREMENTS (Male / Female) Normal Values 2D ECHO LV Diastolic Diameter PLAX 5.0 cm 4.2 - 5.9 / 3.9 - 5.3 cm IVS Diastolic Thickness 1.2 cm 0.6 - 1.0 / 0.6 - 0.9 cm IVS Systolic Thickness 1.4 cm LVPW Diastolic Thickness 1.5 cm 0.6 - 1.0 / 0.6 - 0.9 cm LVPW Systolic Thickness 1.6 cm LVOT Diameter 2.0 cm LV Ejection Fraction 2D Teich 43.6 % LV Ejection Fraction MOD 4C 53.6 % LV Ejection Fraction MOD 2C 44.5 % LV Ejection Fraction 2C AL 46.2 % LA Diameter 3.6 cm RA Systolic Volume 4C AL 26.2 ml RA Systolic Volume 4C MOD 24.6 ml Aorta at Sinotubular Diameter 3.0 cm M-MODE LA Ao Ratio MM 1.8 AV Cusp Separation MM 0.7 cm DOPPLER AV Peak Velocity 304.3 cm/s LVOT Peak Velocity 94.0 cm/s AV Area Cont Eq vti 1.1 cm squared AV Area Cont Eq pk 1.0 cm squared MV Peak Velocity 111.0 cm/s MV Area PHT 3.0 cm squared Mitral E to A Ratio 0.8 TR Peak Velocity 239.0 cm/s TR Peak Gradient 22.8 mmHg TV Peak E Velocity 83.0 cm/s PV Peak Velocity 98.0 cm/s FINDINGS Left Ventricle Normal left ventricular size, systolic function and wall thickness, with no regional wall motion abnormalities. Left ventricular ejection fraction is estimated at 60 %. Grade I/IV diastolic dysfunction (abnormal relaxation filling pattern), normal to mildly elevated filling pressures. Right Ventricle The right ventricle is normal in size and function. Right Atrium The right atrium is normal in size. Left Atrium Moderately increased left atrial size. Mitral Valve Mildly thickened mitral valve. No mitral valve stenosis. Mild mitral valve regurgitation. Aortic Valve Moderate aortic valve calcification. Moderate aortic valve stenosis, mean gradient 22.9 mmHg, ANNMARIE 1.1 cm squared. Trace aortic valve regurgitation. Tricuspid Valve Structurally normal tricuspid valve without significant stenosis or regurgitation. Pulmonary artery systolic pressure is normal. Pulmonic Valve Structurally normal pulmonic valve without significant stenosis. There is no pulmonic regurgitation. Pericardium Normal pericardium without effusion. Aorta Normal ascending aorta dimension. IVC The inferior vena cava appears normal. CONCLUSIONS Normal left ventricular size, systolic function and wall thickness, with no regional wall motion abnormalities. Left ventricular ejection fraction is estimated at 60 %. Grade I/IV diastolic dysfunction (abnormal relaxation filling pattern), normal to mildly elevated filling pressures. Moderately increased left atrial size. Moderate aortic valve calcification. Moderate aortic valve stenosis, mean gradient 22.9 mmHg, ANNMARIE 1.1 cm squared. Trace aortic valve regurgitation. There is no pericardial effusion. Right atrial pressure is around 5 mm of mercury. Salome Wallis MD (Electronically Signed) Final Date: 17 February 2025 19:01 S
--- NOTE | 2025-02-11 12:45 | USCV_ITS ---
Tiesha Wray Age: 74 Gender: F : 1950 Exam Date: 02/11/2025 11:31 Ordering Phys: Melly Monson Technologist: ARTHUR Exam Location: [facility] [place] [facility] [place] Indication: stenosis Risk Factors: Previous Vascular Surgery: Right Brachial BP: / Left Brachial BP: / Right Left Velocity (cm/s) Spectral Plaque Velocity (cm/s) Spectral Plaque Syst/Diast Broadening Syst/Diast Broadening 61.50/ 8.70 Prox CCA 65.20 / 14.50 81.80/ 14.60 Mid CCA 86.50 / 17.20 69.80/ 16.10 Distal CCA 83.00 / 20.60 51.30/ 10.60 Prox ICA 70.00 / 13.80 39.10/ 11.60 Mid ICA 50.20 / 13.70 45.70/ 13.90 Distal ICA 48.40 / 12.00 57.50 ECA 66.90 0.70 ICA/CCA 0.80 Antegrade Vertebral Antegrade 24.90/ 8.90 cm/s 54.70/ 5.00 cm/s Tri Subclavian Tri 92.90 97.40 CONCLUSIONS Right ICA stenosis <50%. Moderate atheromatous plaque right carotid bulb/ICA. Left ICA stenosis <50%. Moderate atheromatous plaque left carotid bulb/ICA. Normal antegrade Doppler flow noted in the right vertebral artery. Normal antegrade Doppler flow noted in the left vertebral artery. Fernie Saenz MD (Electronically Signed) Final Date: 11 February 2025 13:17 S
== END 2025-02-11 10:59 | disposition home or self-care (01) ==
PROVIDERS: PCP Family Medicine; Visit Provider Internal Medicine Cardiovascular Disease
DX: I35.0 Nonrheumatic aortic (valve) stenosis (principal); I65.23 Occlusion and stenosis of bilateral carotid arteries; R93.1 Abnormal findings on diagnostic imaging of heart and coronary circulation; I51.7 Cardiomegaly; I34.0 Nonrheumatic mitral (valve) insufficiency; I35.8 Other nonrheumatic aortic valve disorders
CPT/HCPCS: 93306; 93880

== ENCOUNTER → 2025-03-25 11:33 | Outpatient (BNVA) | payer MEDICARE, SELFPAY | PROVIDERS: PCP Family Medicine; Visit Provider Family Medicine | DX: I10 Essential (primary) hypertension (principal); I50.42 Chronic combined systolic (congestive) and diastolic (congestive) heart failure; I35.0 Nonrheumatic aortic (valve) stenosis | CPT/HCPCS: 80053; 80061 ==

== ENCOUNTER → 2025-07-08 15:44 | Outpatient (BNVA) | payer MEDICARE, SELFPAY | PROVIDERS: PCP Family Medicine; Visit Provider Internal Medicine Cardiovascular Disease | DX: I48.0 Paroxysmal atrial fibrillation (principal); I35.0 Nonrheumatic aortic (valve) stenosis; I50.30 Unspecified diastolic (congestive) heart failure; Z87.891 Personal history of nicotine dependence | CPT/HCPCS: 99214 ==

== ENCOUNTER → 2025-09-16 11:18 | Outpatient (BNVA) | payer MEDICARE, SELFPAY | PROVIDERS: PCP Family Medicine; Visit Provider Family Medicine | DX: E03.9 Hypothyroidism, unspecified (principal); I11.0 Hypertensive heart disease with heart failure; I50.42 Chronic combined systolic (congestive) and diastolic (congestive) heart failure; M25.50 Pain in unspecified joint | CPT/HCPCS: 80053; 80061; 86140 ==